=== PATIENT | male | born 1950 | race Caucasian/White ===

== ENCOUNTER 2017-12-09 12:38 | Outpatient (REF) | payer MEDICARE, MEDICAID, SELFPAY ==
[2017-12-09 13:22] LABS: HCT 33.5 % (40.0-50.0); HGB 10.2 g/dL (13.5-17.5); Mean Corp. HGB Concentration 30.4 g/dL (32.0-36.0); Mean Corpuscular Hemoglobin 25.7 pg (27.0-33.0); Mean Corpuscular Volume 84.4 fL (80-95); Mean Platelet Volume 9.7 fL (8.0-11.0); Platelet Count 245 x1000/uL (130-400); RBC 3.97 m/cumm (4.50-6.00); White Blood Cell Count 6.05 k/cumm (4.4-10.8)
[2017-12-09 13:27] LABS: ALT 105 U/L (12-78); AST 81 U/L (15-37); Albumin 3.5 g/dL (3.4-5.0); Alkaline Phosphatase 96 U/L (46-116); BUN 19 mg/dL (7-18); Bilirubin, Total 0.3 mg/dL (0.2-1.0); CREATININE 0.95 mg/dL (0.70-1.30); Calcium 8.5 mg/dL (8.5-10.1); Chloride 101 mmol/L (98-107); Glucose 95 mg/dL (70-100); Potassium 4.6 mmol/L (3.5-5.1); Sodium 137 mmol/L (136-145); Total Protein 7.1 g/dL (6.4-8.2)
[2017-12-12 10:04] LABS: PSA, Screening 1.4 ng/ml (0-4.5)
[2017-12-13 14:21] LABS: Testosterone, Free 5.25 ng/dL (3.47-13.0); Testosterone, Total 328 ng/dL (240-950)
== END 2017-12-09 12:58 ==
LOC: NCHCN 12:38
PROVIDERS: PCP Family Medicine; Visit Provider Family Medicine
DX: E29.1 Testicular hypofunction (principal); B18.2 Chronic viral hepatitis C; Z12.5 Encounter for screening for malignant neoplasm of prostate
CPT/HCPCS: 80053; 84153; 84402; 84403; 85027

== ENCOUNTER 2017-12-12 10:05 | Outpatient (REF) | payer MEDICARE, MEDICAID, SELFPAY ==
[2017-12-12 20:46] LABS: INR 1.1 (1.0-3.5); Iron 39 ug/dL (50-175); Prothrombin Time 10.4 sec (9.3-10.8); Total Iron Binding Capacity 471 ug/dL (250-450); Transferrin Sat 8 % (20-55)
[2017-12-14 12:31] LABS: HBs Antibody, Quant <3.1 mIU/mL; Hepatitis B Surface Ab Negative; Hepatitis B Surface Ag Negative (NEGAT)
[2017-12-14 12:48] LABS: HIV-1/2 Ag & Ab Screen Negative (NEGAT)
[2017-12-14 12:50] LABS: Hep A Total Ab w Rflx IgM Positive (NEGAT)
[2017-12-19 09:35] LABS: Hep A Antibody IgM Negative (NEGAT)
== END 2017-12-12 10:25 ==
LOC: NCHCN 10:05
PROVIDERS: PCP Family Medicine; Visit Provider Family Medicine
DX: D64.9 Anemia, unspecified (principal); B18.2 Chronic viral hepatitis C; Z11.4 Encounter for screening for human immunodeficiency virus [HIV]
CPT/HCPCS: 86706; 86709; 87340; 87389; 83540; 83550; 85610; 87522

== ENCOUNTER 2017-12-16 08:57 | Emergency (ER) | payer MEDICARE, MEDICAID, SELFPAY ==
[2017-12-16 09:03] VITALS: BP 120/74; PULSE 78; RESP 14; TEMP 36.5; O2SAT 96
[2017-12-16 09:16] VITALS: RESP 14
== END 2017-12-16 10:03 | disposition left before discharge ==
PROVIDERS: Emergency Provider Physician Assistant; PCP Family Medicine
DX: Z53.21 Procedure and treatment not carried out due to patient leaving prior to being seen by health care provider (principal)

== ENCOUNTER → 2018-01-10 08:13 | Outpatient (BNVA) | payer MEDICARE, MEDICAID, SELFPAY | PROVIDERS: PCP Family Medicine; Referring Provider Family Medicine; Visit Provider Surgery | DX: Z86.010 Personal history of colon polyps (principal); D64.9 Anemia, unspecified | CPT/HCPCS: 99213 ==

== ENCOUNTER 2018-06-12 08:26 | Outpatient (REF) | payer MEDICARE, MEDICAID, SELFPAY ==
[2018-06-12 12:25] LABS: Abs Immature Grans 0.01 k/cumm (0.0-0.09); Absolute Basophil Count 0.03 k/cumm (0.0-0.2); Absolute Eosinophil Count 0.43 k/cumm (0.0-0.7); Absolute Lymphocyte Count 1.23 k/cumm (1.2-3.4); Absolute Monocyte Count 0.86 k/cumm (0.11-0.7); Absolute Neutrophil Count 3.92 k/cumm (1.2-6.7); Basophils % 0.5; Eosinophils % 6.6; HCT 34.1 % (40.0-50.0); HGB 10.9 g/dL (13.5-17.5); Immature Grans % 0.2; Mean Corpuscular Hemoglobin 27.5 pg (27.0-33.0); Mean Corpuscular Volume 85.9 fL (80-95); Mean Platelet Volume 9.6 fL (8.0-11.0); Monocytes % 13.3; Neutrophils % 60.4; Platelet Count 264 x1000/uL (130-400); RBC 3.97 m/cumm (4.50-6.00); RBC Distribution Width 13.8 % (11.8-14.1); White Blood Cell Count 6.48 k/cumm (4.4-10.8)
[2018-06-12 13:24] LABS: ALT 34 U/L (12-78); AST 27 U/L (15-37); Albumin 3.6 g/dL (3.4-5.0); Alkaline Phosphatase 188 U/L (46-116); Anion Gap 9.7 mmol/L (3-11); BUN 18 mg/dL (7-18); Bilirubin, Total 0.6 mg/dL (0.2-1.0); CO2 29.3 mmol/L (21.0-32.0); CREATININE 0.79 mg/dL (0.70-1.30); Calcium 8.9 mg/dL (8.5-10.1); Chloride 98 mmol/L (98-107); Glucose 104 mg/dL (70-100); Potassium 4.2 mmol/L (3.5-5.1); Sodium 137 mmol/L (136-145); Total Protein 7.8 g/dL (6.4-8.2)
[2018-06-13 15:36] LABS: HCV RNA Detection Quantitative Undetected IU/mL (UNDECT)
== END 2018-06-12 08:46 ==
LOC: NCHCN 08:26
PROVIDERS: PCP Family Medicine; Visit Provider Family Medicine
DX: B18.2 Chronic viral hepatitis C (principal); Z11.59 Encounter for screening for other viral diseases
CPT/HCPCS: 80053; 86803; 85025; 87522

== ENCOUNTER 2018-10-18 09:41 | Outpatient (REF) | payer MEDICARE, SELFPAY ==
[2018-10-18 12:36] LABS: HCT 30.3 % (40.0-50.0); Mean Corp. HGB Concentration 29.7 g/dL (32.0-36.0); Mean Corpuscular Hemoglobin 23.3 pg (27.0-33.0); Mean Corpuscular Volume 78.5 fL (80-95); Mean Platelet Volume 9.5 fL (8.0-11.0); Platelet Count 252 x1000/uL (130-400); RBC 3.86 m/cumm (4.50-6.00); RBC Distribution Width 16.9 % (11.8-14.1)
[2018-10-18 13:31] LABS: ALT 28 U/L (12-78); AST 22 U/L (15-37); Albumin 3.4 g/dL (3.4-5.0); Alkaline Phosphatase 100 U/L (46-116); Anion Gap 5.9 mmol/L (3-11); BUN 31 mg/dL (7-18); Bilirubin, Total 0.2 mg/dL (0.2-1.0); CO2 29.1 mmol/L (21.0-32.0); CREATININE 0.92 mg/dL (0.70-1.30); Calcium 8.5 mg/dL (8.5-10.1); Chloride 101 mmol/L (98-107); Glucose 63 mg/dL (70-100); Potassium 4.4 mmol/L (3.5-5.1); Sodium 136 mmol/L (136-145); Total Protein 7.1 g/dL (6.4-8.2); Vitamin B12 625 pg/mL (193-986)
[2018-10-19 10:16] LABS: PSA, Screening 1.3 ng/ml (0-4.5)
[2018-10-19 15:43] LABS: HCV RNA Detection Quantitative Undetected IU/mL (UNDECT)
[2018-10-20 20:38] LABS: Testosterone, Total 264 ng/dL (240-950)
== END 2018-10-18 10:01 ==
LOC: LBN 09:41
PROVIDERS: PCP Family Medicine; Visit Provider Family Medicine
DX: D64.9 Anemia, unspecified (principal); E29.1 Testicular hypofunction; B18.2 Chronic viral hepatitis C; Z12.5 Encounter for screening for malignant neoplasm of prostate
CPT/HCPCS: 80053; 84153; 84403; 85027; 82607; 87522

== ENCOUNTER 2019-01-17 09:18 | Outpatient (REF) | payer MEDICARE, MEDICAID, SELFPAY ==
[2019-01-17 11:40] LABS: Mean Corpuscular Hemoglobin 24.1 pg (27.0-33.0); Mean Corpuscular Volume 80.4 fL (80-95); Mean Platelet Volume 8.9 fL (8.0-11.0); Platelet Count 312 x1000/uL (130-400); RBC 3.73 m/cumm (4.50-6.00); RBC Distribution Width 15.5 % (11.8-14.1); White Blood Cell Count 6.49 k/cumm (4.4-10.8)
[2019-01-17 11:52] LABS: Iron 22 ug/dL (50-175); Total Iron Binding Capacity 437 ug/dL (250-450); Transferrin Sat 5 % (20-55)
== END 2019-01-17 09:38 ==
LOC: NCHCN 09:18
PROVIDERS: PCP Family Medicine; Visit Provider Family Medicine
DX: D64.9 Anemia, unspecified (principal)
CPT/HCPCS: 85027; 83540; 83550

== ENCOUNTER 2019-04-23 08:45 | Outpatient (CLI) | payer MEDICARE, MEDICAID, SELFPAY ==
--- NOTE | 2019-04-23 09:06 | DI.RAD_ITS ---
EXAM: XR FOOT RT COMPLETE INDICATION: FOOT JOINT PAIN RT, M79.671. COMPARISON: No exams were available for comparison TECHNIQUE: 2D digital imaging was performed. FINDINGS: There is a question of deformity through the proximal metaphysis of the 2nd metatarsal. A nondisplac ed fracture cannot be excluded. Please correlate with the patient's site of pain. If further imagin g is warranted, a CT scan should be considered. There are mild degenerative changes seen of the foot particularly at the 1st metatarsophalangeal joint. The soft tissues are unremarkable.
== END 2019-04-23 09:05 ==
PROVIDERS: PCP Family Medicine; Visit Provider Nurse Practitioner Family
DX: M79.671 Pain in right foot (principal); M19.071 Primary osteoarthritis, right ankle and foot; M20.61 Acquired deformities of toe(s), unspecified, right foot
CPT/HCPCS: 73630

== ENCOUNTER 2019-05-07 06:50 | Outpatient (CLI) | payer MEDICARE, MEDICAID, SELFPAY ==
--- NOTE | 2019-05-07 08:15 | DI.CT_ITS ---
EXAM: CT LOWER EXTREMITY RT WO CLINICAL HISTORY: FOOT JOINT PAIN RT, M79.671, INJURY 2 WKS AGO, CONTINUED PAIN MID FOOT, ?FX TECHNIQUE: The exam was performed without contrast. COMPARISON: XR FOOT RT COMPLETE from 04/23/2019 FINDINGS: There are osseous fragments adjacent to the proximal cuboid. These may represent avulsed fracture fr agments. There is a nondisplaced comminuted fracture through the base of the 4th metatarsal. The fracture is intra-articular. There is a displaced comminuted intra-articular fracture through the base of the 3rd metatarsal. There is a comminuted intra-articular displaced fracture involving the base of the 2nd metatarsal. There is a tiny osseous fragment at the medial aspect of the base of the 1st metatarsal which may rep resent an acute fracture. There does appear to be some widening of the distance between the bases of the 1st and 2nd metatarsal s. IMPRESSION: 1. Fractures involving the bases of the 2nd, 3rd and 4th metatarsals. 2. Question of a fracture involving the medial aspect of the base of the 1st metatarsal. 3. Widening of the distance between the bases of the 1st and 2nd metatarsals consistent with a [place] deformity.
== END 2019-05-07 07:10 ==
PROVIDERS: PCP Family Medicine; Visit Provider Nurse Practitioner Family
DX: M79.671 Pain in right foot (principal); S92.344A Nondisplaced fracture of fourth metatarsal bone, right foot, initial encounter for closed fracture; S92.331A Displaced fracture of third metatarsal bone, right foot, initial encounter for closed fracture; S92.321A Displaced fracture of second metatarsal bone, right foot, initial encounter for closed fracture; S93.321A Subluxation of tarsometatarsal joint of right foot, initial encounter
CPT/HCPCS: 73700

== ENCOUNTER 2019-05-16 10:27 | Outpatient (CLI) | payer MEDICARE, MEDICAID, SELFPAY ==
--- NOTE | 2019-05-16 08:50 | DI.RAD_ITS ---
EXAM: XR FOOT RT COMPLETE INDICATION: F/U FRACTURES. COMPARISON: XR FOOT RT COMPLETE from 04/23/2019 CT LOWER EXTREMITY RT WO from 05/07/2019 TECHNIQUE: 2D digital imaging was performed. FINDINGS: There has been no change in the alignment of the fractures of the 2nd through 5th metatarsals. No d efinite 1st metatarsal fracture is seen. The 2nd metatarsal fracture appears mildly displaced, uncha nged. No new abnormalities are seen. IMPRESSION: Stable appearance of metatarsal fractures. DATA REPOSITORY: RADIATION DOSE DELIVERED:
== END 2019-05-16 10:47 ==
PROVIDERS: PCP Family Medicine; Referring Provider Family Medicine; Visit Provider Orthopaedic Surgery
DX: S92.321D Displaced fracture of second metatarsal bone, right foot, subsequent encounter for fracture with routine healing (principal); S92.331D Displaced fracture of third metatarsal bone, right foot, subsequent encounter for fracture with routine healing; S92.344D Nondisplaced fracture of fourth metatarsal bone, right foot, subsequent encounter for fracture with routine healing; S93.321D Subluxation of tarsometatarsal joint of right foot, subsequent encounter; X58.XXXD Exposure to other specified factors, subsequent encounter
CPT/HCPCS: 99201; 99213; 73630

== ENCOUNTER 2020-05-22 15:46 | Outpatient (REF) | payer MEDICARE, MEDICAID, SELFPAY ==
[2020-05-22 15:58] LABS: HCT 31.4 % (40.0-50.0); HGB 9.2 g/dL (13.5-17.5); MCHC 29.3 % (32.0-36.0); MCV 75.1 fL (80-95); MPV 9.3 fL (8.0-11.0); Platelet Count 368 10^3/uL (130-400); RBC 4.18 10^6/uL (4.36-5.78); RDW 17.4 % (11.8-14.1); WBC 6.73 10^3/uL (4.4-10.8)
[2020-05-22 16:05] LABS: Iron 31 ug/dL (65-175); Total Iron Binding Capacity 512 ug/dL (250-450); Transferrin Sat 6 % (20-55)
[2020-05-22 16:40] LABS: ALT 28 U/L (16-63); AST 24 U/L (15-37); Albumin 3.6 g/dL (3.4-5.0); Alkaline Phosphatase 121 U/L (46-116); Anion Gap 6.9 mmol/L (3-11); BUN 21 mg/dL (7-18); Bilirubin, Total 0.3 mg/dL (0.2-1.0); CO2 33.1 mmol/L (21.0-32.0); CREATININE 0.9 mg/dL (0.70-1.30); Calcium 9.4 mg/dL (8.5-10.1); Chloride 98 mmol/L (98-107); Glucose 80 mg/dL (74-106); Potassium 4.6 mmol/L (3.5-5.1); Sodium 138 mmol/L (136-145); Total Protein 8.1 g/dL (6.4-8.2); Vitamin B12 990 pg/mL (193-986)
[2020-05-22 22:22] LABS: PSA, Screening 0.7 ng/mL (0.0-4.5)
== END 2020-05-22 15:47 | disposition home or self-care (01) ==
LOC: NCHCN 15:46
PROVIDERS: PCP Family Medicine; Visit Provider Family Medicine
DX: D64.9 Anemia, unspecified (principal); E29.9 Testicular dysfunction, unspecified; Z12.5 Encounter for screening for malignant neoplasm of prostate
CPT/HCPCS: 80053; 84153; 85027; 82607; 83540; 83550

== ENCOUNTER 2020-08-06 07:47 | Inpatient (IN) | payer MEDICARE, MEDICAID, SELFPAY ==
[2020-08-06] VITALS (62 sets, daily range): BP systolic 98–162; BP diastolic 58–107; PULSE 67–98; RESP 12–27; TEMP 36–37.8; O2SAT 82–96
--- NOTE | 2020-08-06 08:00 | DI.CT_ITS ---
Exam(s) CT HEAD WO EXAM: CT HEAD WO CLINICAL HISTORY: altered, febrile. TECHNIQUE: Imaging Protocol: Axial computed tomography images with coronal and sagittal reformatted images were created and reviewed COMPARISON: No exams were available for comparison FINDINGS: There are no skull fractures nor fluid in the visualized paranasal sinuses. There is no evidence of intracranial hemorrhage, mass effect, or shift of midline structures. There are no extra-axial fluid collections. The ventricles are not enlarged or shifted and there is no blo od within the ventricular system nor within the basal cisterns. There is some vascular calcification noted in the left vertebral artery at the skull base. IMPRESSION: No acute intracranial findings on this noninfused CT scan of the brain. RADIATION DOSE DELIVERED: 1,590.58mGy.cm Total DLP DATA REPOSITORY: All CT scans at this facility are submitted to the National Radiology Data Registry (NRDR) Dose Index Registry (DIR) with the [employer] (ACR). RADIATION OPTIMIZATION: All CT scans at this facility use at least one of these dose optimization te chniques: automated exposure control; mA and/or kV adjustment per patient size (includes targeted exa ms where dose is matched to clinical indication); or iterative reconstruction.
--- NOTE | 2020-08-06 08:00 | DI.CT_ITS ---
Exam(s) CT CHEST/ABD/PEL WO EXAM: CT CHEST/ABD/PEL WO CLINICAL HISTORY: altered, febrile, cough, vomiting, ruq abd pain. TECHNIQUE: Imaging Protocol: Axial computed tomography images with coronal and sagittal reformatted images were created and reviewed CONTRAST MATERIAL: Intravenous: none Oral: None COMPARISON: No exams were available for comparison FINDINGS: CHEST: LUNGS: There are multiple areas of patchy infiltrate evident in both lung griffith, more so on the righ t side. No associated pleural effusions.. No significant focal findings in trachea and mainstem bro nchi. MEDIASTINUM: Minimally prominent hilar and mediastinal lymph nodes. Somewhat difficult to evaluate w ithout IV contrast. Visualized thyroid unremarkable.Large retrocardiac hiatal hernia. Most of the f undus of the stomach is in the chest behind the heart. CARDIAC: Heart size is normal. There is no pericardial effusion.Diameter of the ascending thoracic a javed is slightly prominent measuring 4 cm. Diameter of the aortic arch is 2.7 cm and diameter of the descending thoracic aorta is slightly prominent, measuring 3 cm. OSSEOUS: No significant osseous lesions.. ABDOMEN: Images are degraded by motion artifact There is no ascites. LIVER: There are no obvious focal hepatic lesions evident of this noninfused study. GALLBLADDER/BILIARY: No obvious gallbladder pathology. CBD is not dilated. PANCREAS: No evidence of obvious pancreatic mass nor dilatation of the pancreatic duct. SPLEEN: Spleen is not enlarged. No obvious intrasplenic lesions. ADRENALS: There are no significant adrenal masses. KIDNEYS: There is a solitary 4 millimeter calculus in the inferior pole calyx of the right kidney. N o other radiopaque calculi seen in the kidneys and no hydronephrosis. No ominous renal masses eviden t. No obvious cysts.. No cysts evident. ABDOMINAL AORTA: Abdominal aorta is not enlarged. LYMPH NODES: There is no retroperitoneal nor para-aortic adenopathy. ABDOMINAL WALL/GI: No evidence of signature anterior abdominal wall hernia. No bowel obstruction. PELVIS: LYMPH NODES: There is no intrapelvic nor inguinal adenopathy. GI: No evidence of appendicitis.There is sigmoid diverticuli. There is no obvious acute diverticulit is.Abundant fecal material noted in the rectum. No bowel obstruction. URINARY BLADDER: No calculi nor obvious masses evident REPRODUCTIVE: Prostate slightly prominent. OSSEOUS: Subtle sclerosis area in the left iliac bone. Slight height loss of the superior endplate of L1 vertebral body noted. Also deep Schmorl's node inv agination at the superior endplate of L1 noted no acute appearing compression fractures. Advanced di sc space narrowing L5-S1 level noted. No ominous osseous lesions evident in the vertebral bodies. IMPRESSION: 1. There is a solitary nonobstructive 4 millimeter calculus in the lower pole calyx of the right kidn ey. No hydronephrosis. No other focal renal findings evident on this noninfused CT scan. 2. Multiple foci of infiltrate in the lung griffith, not associated with pleural effusions. These are more prominent and numerous in the right lung. RADIATION DOSE DELIVERED: 941.38mGy.cm Total DLP DATA REPOSITORY: All CT scans at this facility are submitted to the National Radiology Data Registry (NRDR) Dose Index Registry (DIR) with the [employer] (ACR). RADIATION OPTIMIZATION: All CT scans at this facility use at least one of these dose optimization te chniques: automated exposure control; mA and/or kV adjustment per patient size (includes targeted exa ms where dose is matched to clinical indication); or iterative reconstruction.
--- NOTE | 2020-08-06 08:00 | RT.EKG_ITS ---
APPROVED REPORT Exam: Resting ECG Reason for Exam: altered Patient Location: E HR:85 bpm ECG Measurements Heart Rate 85 AXIS OK 164 P 44 QRSd 70 QRS 29 QT 342 T 57 QTc 408 Conclusion Sinus rhythm...normal P axis, V-rate 60- 99 Physician: EKG 8: 26 Rate 85, sinus rhythm, no significant ST elevations or depressions, no T wave inversions, no QRS prol ongation. No other significant abnormalities.
[2020-08-06 08:17] LABS: Abs Immature Grans 0.05 10^3/uL (0.0-0.06); Absolute Basophil Count 0.04 10^3/uL (0.0-0.2); Absolute Monocyte Count 0.84 10^3/uL (0.1-0.8); Basophils % 0.3; Eosinophils % 1.8; HCT 32.8 % (40.0-50.0); HGB 9.8 g/dL (13.5-17.5); Immature Grans % 0.4; Lymphocytes % 4.8; MCH 22.6 pg (27.0-33.0); MCHC 29.9 % (32.0-36.0); MCV 75.6 fL (80-95); MPV 8.8 fL (8.0-11.0); Neutrophils % 85.7; Nucleated RBC 0 %; Platelet Count 311 10^3/uL (130-400); RBC 4.34 10^6/uL (4.36-5.78); RDW 17.2 % (11.8-14.1); RDW-SD 46.5 fL; WBC 11.97 10^3/uL (4.4-10.8)
[2020-08-06 08:19] LABS: Absolute Eosinophil Count 0.22 10^3/uL (0.0-0.7); Absolute Lymphocyte Count 0.57 10^3/uL (1.2-3.4); Absolute Neutrophil Count 10.26 10^3/uL (1.2-6.7); BE (Venous) 7 mmol/L (-2-3); HCO3 (Venous) 32 mmol/L (23-28); O2 Sat (Venous) 87 %; TCO2 (Venous) 30 mmol/L (24-29); pCO2 (Venous) 56 mmHg (41-51); pH (Venous) 7.37 (7.31-7.41); pO2 (Venous) 54 mmHg
[2020-08-06 08:27] LABS: Lactate 1.3 mmol/L (0.6-1.4)
--- NOTE | 2020-08-06 08:39 | ED.GENADUL_ITS ---
Discharge Plan Disposition Condition: Improving Discharge Details Chief Complaint: Fever Clinical Impression: Pneumonia, Fever, Altered mental status Primary Care Provider: Tee Amato ED Provider: Jovan Shelley Home Meds and New Rx's Prescriptions: No Action ketoconazole 2 % shampoo 1 applic TP PRN PRNRF: 0 aspirin [Adult Low Dose Aspirin] 81 mg tablet,delayed release (DR/EC) 81 mg PO DAILY RF: 0 docusate sodium 100 mg capsule 50 mg PO DAILY RF: 0 sennosides [senna] 8.6 mg tablet 8.6 mg PO QHS RF: 0 ferrous gluconate 324 mg (38 mg iron) tablet 324 mg PO DAILY RF: 0 sucralfate 1 gram tablet 1 gm PO QID PRNRF: 0 ketoconazole 2 % cream 1 applic TP DAILY RF: 0 gabapentin 300 mg capsule 400 mg PO QHS RF: 0 venlafaxine 37.5 mg tablet 37.5 mg PO DAILY RF: 0 Flovent HFA 12 GM HFA aerosol inhaler 110 mcg Inhalation BID PRNRF: 0 gabapentin 300 MG capsule 0.5 tab PO PRN RF: 0 omeprazole 40 mg capsule,delayed release(DR/EC) 20 mg PO DAILY RF: 0 methadone 5 mg tablet 50 mg PO DAILY MDD 5 mg 28 Days Qty: 56 RF: 0 albuterol sulfate [Proventil HFA] 6.7 GM HFA aerosol inhaler 2 puff Inhalation Q4H PRN PRNRF: 0 diclofenac sodium [Voltaren] 100 GM gel 1 ea Topical QID RF: 0 venlafaxine [Effexor XR] 150 MG capsule,extended release 24hr 150 mg PO DAILY RF: 0 acetaminophen [Acetaminophen Extra Strength] 500 MG tablet 1,000 mg PO TID PRN PRNQty: 60 RF: 3 testosterone [AndroGel] 1 % (50 mg/5 gram) gel in packet 50 mg topical DAILY PRNRF: 0 Narcan 4 mg/actuation [place],Non-Aerosol See Rx Instructions .ROUTE .COMPLEX RF: 0 Medical Decision Making This is a 70-year-old male with a past medical history of chronic hepatitis C, anemia, depressive disorder, chronic pain syndrome, GERD, diastolic dysfunction, psoriasis, fibromyalgia, sleep apnea, asthma, methadone use, who presents today for evaluation of altered mental status. He was at the methadone clinic where the physician noted that he was altered, confused, stumbling, vital signs demonstrated fever. EMS was called and he was brought to the ER for further assessment. Patient is a notably poor historian currently, and cannot provide any additional information. He has no complaints time aside from mild abdominal pain during exam. No other modifying factors. Of note the patient did not get his methadone today. Physical exam demonstrates an altered male, who is febrile but hemodynamically stable. No meningeal signs, mild epigastric tenderness. To be as directed in his hands. He has a dilated and seemingly old injury of the left pupil, right pupil smaller and reactive. Differential is broad, no evidence of rash on exam, encephalitis seems less likely. With abdominal pain, history of hepatitis, I do worry about encephalopathy secondary to elevated ammonia. Clinically the patient does not demonstrate evidence of spontaneous bacterial peritonitis with no evidence of large peritoneal effusion. He was coughing, does have mild crackles in the bases, pneumonia certainly on the differential. We will evaluate for potential source, monitor closely, reassess. Of note the patient was 86% on room air initially and is now saturating well on 2 L. 9:42 AM Laboratory work-up is returned and is surprisingly relatively unremarkable. Minimal elevation in WBC count, hemoglobin slightly low at 9.8 but this is near his baseline. He does have a microcytic anemia. We will perform a stool Hemoccult. Mild left shift. No bandemia. Coagulation function is normal. VBG demonstrates minimal elevation in PCO2 but no acidosis. Lactate is only 1.3. Chemistries are normal, renal function good. Ammonia level only 25. Troponin n ormal, thyroid function good. Lipase normal. Urinalysis negative for any significant abnormality. CT scan of the head negative per Dr. Chan, CT scan of the chest abdomen pelvis demonstrates evidence of interstitial infiltrate concerning for pneumonia. Covid, and influenza test is negative. Patient saturating well on 2 L of supplemental oxygen. Repeat exam continues to show no meningeal signs, no meningeal mass, negative Kernig's and Brudzinski's. Symptoms inconsistent with meningitis. With evidence of pneumonia I see no indication for emergent spinal tap at this time as the symptoms appearing consistent with meningitis currently. We will treat with broad-spectrum antibiotics for his pneumonia with Zosyn, vancomycin and azithromycin. QRS and QTc are normal. Patient's temperature has improved here during his stay. We will gently rehydrate. I have contacted both the patient from the patient's contact list, both Kerline and Minerva, neither answered my call, I did leave a message. Currently there are no beds available at [facility], we will look for transfer elsewhere potentially. 12:53 PM Patient has remained stable here. It that has opened up at [facility]. Patient has received broad-spectrum antibiotics. We have gradually titrated the patient's oxygen down, he is now able to saturate at 93% on room air. Patient will be admitted. Discussed the case with , he agrees with the assessment and plan. I have extensively reviewed the treatment plan with the patient. I have addressed all patient concerns at this time. I have also discussed the plan with the admitting physician and they agree with the current assessment and plan and have agreed to assume responsibility for the patient. All parties demonstrate verbal understanding and agreement with our assessment and plan at this time. The documentation in this chart was dictated using [employer] dictation software. Please excuse any dictation errors. EKG 8: 26 Rate 85, sinus rhythm, no significant ST elevations or depressions, no T wave inversions, no QRS prolongation. QT is 408 no other significant abnormalities. HPI General Date/Time Provider Initiated Documentation: 08/06/20 08:00 . HPI Narrative: This is a 70-year-old male with a past medical history of chronic hepatitis C, anemia, depressive disorder, chronic pain syndrome, GERD, diastolic dysfunction, psoriasis, fibromyalgia, sleep apnea, asthma, methadone use, who presents today for evaluation of altered mental status. He was at the methadone clinic where the physician noted that he was altered, confused, stumbling, vital signs demonstrated fever. EMS was called and he was brought to the ER for further assessment. Patient is a notably poor historian currently, and cannot provide any additional information. He has no complaints time aside from mild abdominal pain during exam. No other modifying factors. Of note the patient did not get his methadone today. Related Data Home Medications Medication Instructions Recorded Confirmed Flovent HFA 110 mcg INHALATION BID PRN inhaler 03/02/14 08/06/20 albuterol sulfate [Proventil HFA] 2 puff INHALATION Q4H PRN PRN 07/28/15 08/06/20 diclofenac sodium [Voltaren] 1 ea TOPICAL QID 07/28/15 08/06/20 venlafaxine [Effexor XR] 150 mg PO DAILY 07/29/15 08/06/20 gabapentin 0.5 tab PO PRN tab-cap 09/01/16 01/12/18 acetaminophen [Acetaminophen Extra 1,000 mg PO TID PRN PRN #60 tab 04/12/17 01/12/18 Strength] aspirin 81 mg tablet,delayed 81 mg PO DAILY 12/19/17 01/12/18 release ketoconazole 2 % shampoo 1 applic TP PRN PRN 12/19/17 08/06/20 omeprazole 40 mg capsule,delayed 20 mg PO DAILY tab-cap 01/10/18 08/06/20 release docusate sodium 100 mg capsule 50 mg PO DAILY cap 05/16/19 05/16/19 ferrous gluconate 324 mg (38 mg 324 mg PO DAILY 05/16/19 08/06/20 iron) tablet gabapentin 300 mg capsule 400 mg PO QHS 05/16/19 08/06/20 ketoconazole 2 % topical cream 1 applic TP DAILY 05/16/19 08/06/20 methadone 5 mg tablet 50 mg PO DAILY 28 Days #56 tab MDD 05/16/19 08/06/20 5 mg sennosides 8.6 mg tablet 8.6 mg PO QHS 05/16/19 05/16/19 sucralfate 1 gram tablet 1 gm PO QID PRN tab 05/16/19 05/16/19 venlafaxine 37.5 mg tablet 37.5 mg PO DAILY 05/16/19 08/06/20 naloxone [Narcan] See Rx Instructions .ROUTE .COMPLEX 08/06/20 08/06/20 testosterone [AndroGel] 50 mg TOPICAL DAILY PRN 08/06/20 08/06/20 Previous Rx's Medication Instructions Recorded acetaminophen [Acetaminophen Extra 1,000 mg PO TID PRN PRN #60 tab 04/12/17 Strength] Allergies Allergy/AdvReac Type Severity Reaction Status Date / Time ibuprofen AdvReac Intermediate Nausea Unverified 08/06/20 08:43 General JEFRY: 3 Review of Systems All systems reviewed & are unremarkable except as noted in HPI and below PFSH Medical History Adenomatous colon polyp Anemia Asthma Bilateral hearing loss Chronic back pain Chronic hepatitis C Chronic uveitis Depression Diastolic dysfunction Dupuytren contracture Fibromyalgia GERD (gastroesophageal reflux disease) Opioid dependence Psoriasis Seborrheic dermatitis Sleep apnea Testosterone deficiency Surgical History S/P colonoscopy with polypectomy Family History Father Kidney failure Social History Smoking/Tobacco Use Status: Never Smoking risk assessment performed?: Yes Alcohol Intake: never Drug use: Current Sobriety Substance use type: does not use Current gender identity: male Do you feel safe in your relationship?: Yes Exam Narrative Exam Narrative: 1.Const: Well-nourished, Well-developed, appearing stated age 2.Eyes: Pupils demonstrate a dilated and seemingly old injury pattern for the left pupil, slightly constricted right pupil. Right pupil is reactive. Left pupil is not. Small cataract noted over the left pupil likely from old injury. 3.ENT: Atraumatic external nose and ears. Moist MM. Neck: Symmetric, trachea midline, No thyromegaly. Patient demonstrates good movement of cervical neck. There is no nuchal rigidity, no nuchal tenderness. Patient is able to flex the neck without any difficulty or significant pain. Negative Kernig's and Brudzinski sign. 4.CVS: +S1/S2, No murmurs or gallops. Peripheral pulses 2+ and equal in all extremities. Brisk capillary refill in all extremities. 5.RESP: Unlabored respiratory effort. Crackles in the bases, no wheezes or rhonchi. 6.GI: Soft, nondistended, mild epigastric tenderness. 7.MSK: Normocephalic/Atraumatic, Extremities w/o deformity or ttp No cyanosis or clubbing, Normal movement of all extremities, 1-2 beat asterixis in both hands. 8.Skin: Warm, Dry. No rashes or lesions. 9.Neuro: Patient moves all extremities, no facial droop, cranial nerves appear intact. Speech clear. 10.Psych: (AAO) x0. Pleasant, notably confused, appears somewhat altered. Course Lab/Test Results Lab/Test Results: 08/06/20 08:15 Blood Blood Culture - Pending 08/06/20 08:05 Blood Blood Culture - Pending Laboratory Tests Range/Units 08/06/20 08/06/20 08/06/20 08:05 08:05 08:05 WBC (4.4-10.8) 10^3/uL 11.97 H RBC (4.36-5.78) 10^6/uL 4.34 L Hgb (13.5-17.5) g/dL 9.8 L Hct (40.0-50.0) % 32.8 L MCV (80-95) fL 75.6 L MCH (27.0-33.0) pg 22.6 L MCHC (32.0-36.0) % 29.9 L RDW (11.8-14.1) % 17.2 H Plt Count (130-400) 10^3/uL 311 MPV (8.0-11.0) fL 8.8 Immature Gran % 0.4 Neutrophils % 85.7 Lymphocytes % 4.8 Monocytes % 7.0 Eosinophils % 1.8 Basophils % 0.3 Nucleated RBC % % 0 Absolute Neutrophils (1.2-6.7) 10^3/uL 10.26 H Absolute Lymphocytes (1.2-3.4) 10^3/uL 0.57 L Absolute Monocytes (0.1-0.8) 10^3/uL 0.84 H Absolute Eosinophils (0.0-0.7) 10^3/uL 0.22 Absolute Basophils (0.0-0.2) 10^3/uL 0.04 VBG pH (7.31-7.41) 7.37 VBG pCO2 (41-51) mmHg 56 H VBG pO2 mmHg 54 VBG HCO3 (23-28) mmol/L 32 H VBG Total CO2 (24-29) mmol/L 30 H VBG O2 Saturation % 87 VBG Base Excess (-2-3) mmol/L 7 H VBG Lactate (0.6-1.4) mmol/L 1.3 COVID-19 Source Range/Units 08/06/20 08:10 WBC (4.4-10.8) 10^3/uL RBC (4.36-5.78) 10^6/uL Hgb (13.5-17.5) g/dL Hct (40.0-50.0) % MCV (80-95) fL MCH (27.0-33.0) pg MCHC (32.0-36.0) % RDW (11.8-14.1) % Plt Count (130-400) 10^3/uL MPV (8.0-11.0) fL Immature Gran % Neutrophils % Lymphocytes % Monocytes % Eosinophils % Basophils % Nucleated RBC % % Absolute Neutrophils (1.2-6.7) 10^3/uL Absolute Lymphocytes (1.2-3.4) 10^3/uL Absolute Monocytes (0.1-0.8) 10^3/uL Absolute Eosinophils (0.0-0.7) 10^3/uL Absolute Basophils (0.0-0.2) 10^3/uL VBG pH (7.31-7.41) VBG pCO2 (41-51) mmHg VBG pO2 mmHg VBG HCO3 (23-28) mmol/L VBG Total CO2 (24-29) mmol/L VBG O2 Saturation % VBG Base Excess (-2-3) mmol/L VBG Lactate (0.6-1.4) mmol/L COVID-19 Source Nasopharyx
[2020-08-06 08:42] LABS: Ammonia 25 umol/L (11-32)
[2020-08-06 08:48] LABS: Salicylate < 2.8 mg/dL (<2.8)
[2020-08-06 08:48] LABS: Bilirubin Negative (Negative); Blood Trace-intact (Negative); Clarity Sl Cloudy (Clear); Glucose Negative (Negative); Ketones Negative (Negative); Leukocyte Esterase Negative (Negative); Nitrite Negative (Negative); Urobilinogen 0.2 EU/dL (Up TO 0.2); pH 8.5 (5-8)
[2020-08-06 08:54] LABS: Acetaminophen < 2 ug/mL (10-30)
[2020-08-06 08:56] LABS: Bacteria Negative HPF (Negative); C & S Indicated? No; Casts Negative LPF (Negative); Crystals Moderate Amorphous HPF (Negative); Epithelial Cells Rare HPF (Negative); Mucus Negative (Negative); WBC Negative HPF (0-5)
[2020-08-06 08:58] LABS: COVID-19 PCR Negative (Negative); Influenza A PCR Negative (Negative); Influenza B PCR Negative (Negative); RSV PCR Negative (Negative)
[2020-08-06 09:03] LABS: ALT 29 U/L (16-63); AST 22 U/L (15-37); Albumin 3.5 g/dL (3.4-5.0); Alkaline Phosphatase 104 U/L (46-116); Anion Gap 6.1 mmol/L (3-11); BUN 19 mg/dL (7-18); Bilirubin, Total 0.3 mg/dL (0.2-1.0); CO2 31.9 mmol/L (21.0-32.0); CREATININE 0.9 mg/dL (0.70-1.30); Chloride 100 mmol/L (98-107); Glucose 115 mg/dL (74-106); Lipase 75 U/L (73-393); Potassium 4.3 mmol/L (3.5-5.1); Sodium 138 mmol/L (136-145); TSH (W/Ref FT4) 0.82 uIU/mL (0.36-3.74); Total Protein 8.5 g/dL (6.4-8.2)
[2020-08-06 09:04] LABS: INR 1.1 (0.9-1.1); PTT Activated 24.5 sec (21.0-27.5); Prothrombin Time 10.8 sec (9.3-11.0)
[2020-08-06 09:07] LABS: ETHANOL BLOOD < 3.0 mg/dL (<3); Troponin I < 0.05 ng/mL (<0.06)
[2020-08-06 09:15] LABS: *AMPHETAMINES SCREEN URINE Negative (Negative); *BARBITURATES SCREEN URINE Negative (Negative); *BENZODIAZEPINES SCREEN URINE Negative (Negative); Cannabinoids THC Negative (Negative); Cocaine Screen,Urine Negative (Negative); METHADONE URINE SCREEN Negative (Negative); OPIATES URINE SCREEN Negative (Negative)
[2020-08-06 09:17] LABS: Tricyclic Antidepressants Negative (Negative)
[2020-08-06] MEDS: PIPERACILLIN/TAZO 3.375 GM in Normal Saline 50 ML IVPB (09:43)
[2020-08-06] MEDS: Normal Saline 1,000 ML 1000 ML IV (10:00)
[2020-08-06] MEDS: AZITHROMYCIN 500 MG in Normal Saline 250 ML 250 MG IVPB (10:19)
[2020-08-06] MEDS: VANCOMYCIN/WATER (PEG) 1.5 GM/300 ML BAG IVPB (11:43)
[2020-08-06 11:51] LABS: Troponin I < 0.05 ng/mL (<0.06)
[2020-08-06] MEDS: Enoxaparin 40 MG/0.4 ML SYR SC (13:42)
[2020-08-06] MEDS: Normal Saline Flush 10 ML SYR (13:43)
--- NOTE | 2020-08-06 13:49 | HPE_ITS ---
Date of service: 08/06/20 Time of Service: 13:49 Assessment and Plan Assessment and plan (1) Altered mental status: Status: Acute Assessment and plan: resolved on arrival to floor appears at baseline. will monitor closely (2) Chronic pain: Status: Acute Assessment and plan: will continue methadone. now fully awake, will give 60 mg today and resume home dose of 86 daily starting tomorrow. (3) Pneumonia: Status: Acute Assessment and plan: suspected on admission he is oxygenating well on room air, with no cough possibly aspirated, will give i/s no broad spectrum antibiotics indicated consider augmentin for a short course anticipate discharge tomorrow discussed with DR Arthur History of Present Illness History of Present Illness Chief Complaint: altered mental status Narrative: This is a 70-year-old male with a past medical history of chronic hepatitis C, anemia, depressive disorder, chronic pain syndrome, GERD, diastolic dysfunction, psoriasis, fibromyalgia, sleep apnea, asthma, methadone use, who presents today for evaluation of altered mental status.? He was at the methadone clinic where the physician noted that he was altered, confused, stumbling, vital signs demonstrated fever.? EMS was called and he was brought to the ER for further assessment.? Patient is a notably poor historian currently, and cannot provide any additional information.? He has no complaints time aside from mild abdominal pain during exam.? ? Of note the patient did not get his methadone today. extensive work up in ED with concern for pneumonia, he is given broad spectrum antibiotics and admission request to hospitalist services. at his baseline at admission, hemodynamically stable, requesting his methadone.? Review of Systems All systems reviewed & are unremarkable except as noted in HPI and below PFSH Medical History Adenomatous colon polyp Anemia Asthma Bilateral hearing loss Chronic back pain Chronic hepatitis C Chronic uveitis Depression Diastolic dysfunction Dupuytren contracture Fibromyalgia GERD (gastroesophageal reflux disease) Opioid dependence Psoriasis Seborrheic dermatitis Sleep apnea Testosterone deficiency Surgical History S/P colonoscopy with polypectomy Family History Father Kidney failure Social History Smoking/Tobacco Use Status: Never Smoking risk assessment performed?: Yes Alcohol Intake: never Drug use: Current Sobriety Substance use type: does not use Current gender identity: male Do you feel safe in your relationship?: Yes Meds Allergies and Home Medications Allergies Allergy/AdvReac Type Severity Reaction Status Date / Time ibuprofen AdvReac Intermediate Nausea Unverified 08/06/20 08:43 Home Medications Medication Instructions Recorded Confirmed Type Flovent HFA 110 mcg INHALATION BID PRN inhaler 03/02/14 08/06/20 History albuterol sulfate [Proventil HFA] 2 puff INHALATION Q4H PRN PRN 07/28/15 08/06/20 History diclofenac sodium [Voltaren] 1 ea TOPICAL QID 07/28/15 08/06/20 History venlafaxine [Effexor XR] 150 mg PO DAILY 07/29/15 08/06/20 History acetaminophen [Acetaminophen Extra 1,000 mg PO TID PRN PRN #60 tab 04/12/17 08/06/20 Rx Strength] aspirin 81 mg tablet,delayed 81 mg PO DAILY 12/19/17 08/06/20 History release ketoconazole 2 % shampoo 1 applic TP PRN PRN 12/19/17 08/06/20 History omeprazole 40 mg capsule,delayed 20 mg PO DAILY tab-cap 01/10/18 08/06/20 History release ferrous gluconate 324 mg (38 mg 324 mg PO DAILY 05/16/19 08/06/20 History iron) tablet gabapentin 300 mg capsule 400 mg PO QHS 05/16/19 08/06/20 History ketoconazole 2 % topical cream 1 applic TP DAILY 05/16/19 08/06/20 History sennosides 8.6 mg tablet 8.6 mg PO QHS 05/16/19 08/06/20 History venlafaxine 37.5 mg tablet 37.5 mg PO DAILY 05/16/19 08/06/20 History methadone [Methadone Intensol] 86 mg PO DAILY 08/06/20 08/06/20 History naloxone [Narcan] See Rx Instructions .ROUTE .COMPLEX 08/06/20 08/06/20 History testosterone [AndroGel] 50 mg TOPICAL DAILY PRN 08/06/20 08/06/20 History Exam Const General: cooperative, comfortable, no acute distress, disheveled and ill appearing chronically Nutritional Appearance: average body habitus Orientation: alert, awake and oriented x3 HENMT Head: normal to inspection, normocephalic and atraumatic Resp Effort & Inspection: normal respiratory effort and able to speak in complete sentences Auscultation: no rales, rhonchi (fine right base, ) and no wheezes Cardio Rate: regular rate Rhythm: regular rhythm GI Inspection: normal to inspection Skin General skin exam: no rashes or lesions noted Neuro General: patient alert, patient awake, patient oriented x3 and no focal motor deficits Extrem General: normal to inspection, full ROM and no pedal edema Results Labs Result diagrams: 08/06/20 08:05 08/06/20 08:05 Labs: Laboratory Results - last 24 hr 08/06/20 08/06/20 08/06/20 08:05 08:05 08:05 WBC RBC Hgb Hct MCV MCH MCHC RDW Plt Count MPV Immature Gran % Neutrophils % Lymphocytes % Monocytes % Eosinophils % Basophils % Nucleated RBC % Absolute Neutrophils Absolute Lymphocytes Absolute Monocytes Absolute Eosinophils Absolute Basophils PT INR APTT VBG pH VBG pCO2 VBG pO2 VBG HCO3 VBG Total CO2 VBG O2 Saturation VBG Base Excess VBG Lactate 1.3 Sodium 138 Potassium 4.3 Chloride 100 Carbon Dioxide 31.9 Anion Gap 6.1 BUN 19 H Creatinine 0.9 Estimated GFR/1.73 m2 >= 60.00 Glucose 115 H Calcium 9.0 Total Bilirubin 0.3 AST 22 ALT 29 Alkaline Phosphatase 104 Ammonia Troponin I < 0.05 Total Protein 8.5 H Albumin 3.5 Lipase 75 TSH 0.82 Urine Color Urine Clarity Urine pH Ur Specific [place] Urine Protein Urine Ketones Urine Blood Urine Nitrite Urine Bilirubin Urine Urobilinogen Ur Leukocyte Esterase Urine RBC Urine WBC Ur Epithelial Cells Urine Crystals Urine Bacteria Urine Casts Urine Mucus Ur Culture Indicated? Urine Glucose Salicylates < 2.8 Urine Opiates Screen Urine Methadone Screen Acetaminophen < 2 Ur Barbiturates Screen Ur Tricyclics Screen Ur Amphetamines Screen U Benzodiazepines Scrn Urine Cocaine Screen Ur THC Screen Ethyl Alcohol < 3.0 COVID-19 Source SARS-CoV-2 (PCR) Influenza Type A (PCR) Influenza Type B (PCR) RSV (PCR) 08/06/20 08/06/20 08/06/20 08:05 08:05 08:05 WBC 11.97 H RBC 4.34 L Hgb 9.8 L Hct 32.8 L MCV 75.6 L MCH 22.6 L MCHC 29.9 L RDW 17.2 H Plt Count 311 MPV 8.8 Immature Gran % 0.4 Neutrophils % 85.7 Lymphocytes % 4.8 Monocytes % 7.0 Eosinophils % 1.8 Basophils % 0.3 Nucleated RBC % 0 Absolute Neutrophils 10.26 H Absolute Lymphocytes 0.57 L Absolute Monocytes 0.84 H Absolute Eosinophils 0.22 Absolute Basophils 0.04 PT 10.8 INR 1.1 APTT 24.5 VBG pH 7.37 VBG pCO2 56 H VBG pO2 54 VBG HCO3 32 H VBG Total CO2 30 H VBG O2 Saturation 87 VBG Base Excess 7 H VBG Lactate Sodium Potassium Chloride Carbon Dioxide Anion Gap BUN Creatinine Estimated GFR/1.73 m2 Glucose Calcium Total Bilirubin AST ALT Alkaline Phosphatase Ammonia Troponin I Total Protein Albumin Lipase TSH Urine Color Urine Clarity Urine pH Ur Specific [place] Urine Protein Urine Ketones Urine Blood Urine Nitrite Urine Bilirubin Urine Urobilinogen Ur Leukocyte Esterase Urine RBC Urine WBC Ur Epithelial Cells Urine Crystals Urine Bacteria Urine Casts Urine Mucus Ur Culture Indicated? Urine Glucose Salicylates Urine Opiates Screen Urine Methadone Screen Acetaminophen Ur Barbiturates Screen Ur Tricyclics Screen Ur Amphetamines Screen U Benzodiazepines Scrn Urine Cocaine Screen Ur THC Screen Ethyl Alcohol COVID-19 Source SARS-CoV-2 (PCR) Influenza Type A (PCR) Influenza Type B (PCR) RSV (PCR) 08/06/20 08/06/20 08/06/20 08:10 08:15 08:30 WBC RBC Hgb Hct MCV MCH MCHC RDW Plt Count MPV Immature Gran % Neutrophils % Lymphocytes % Monocytes % Eosinophils % Basophils % Nucleated RBC % Absolute Neutrophils Absolute Lymphocytes Absolute Monocytes Absolute Eosinophils Absolute Basophils PT INR APTT VBG pH VBG pCO2 VBG pO2 VBG HCO3 VBG Total CO2 VBG O2 Saturation VBG Base Excess VBG Lactate Sodium Potassium Chloride Carbon Dioxide Anion Gap BUN Creatinine Estimated GFR/1.73 m2 Glucose Calcium Total Bilirubin AST ALT Alkaline Phosphatase Ammonia 25 Troponin I Total Protein Albumin Lipase TSH Urine Color Urine Clarity Urine pH Ur Specific [place] Urine Protein Urine Ketones Urine Blood Urine Nitrite Urine Bilirubin Urine Urobilinogen Ur Leukocyte Esterase Urine RBC Urine WBC Ur Epithelial Cells Urine Crystals Urine Bacteria Urine Casts Urine Mucus Ur Culture Indicated? Urine Glucose Salicylates Urine Opiates Screen Negative Urine Methadone Screen Negative Acetaminophen Ur Barbiturates Screen Negative Ur Tricyclics Screen Negative Ur Amphetamines Screen Negative U Benzodiazepines Scrn Negative Urine Cocaine Screen Negative Ur THC Screen Negative Ethyl Alcohol COVID-19 Source Nasopharyx SARS-CoV-2 (PCR) Negative Influenza Type A (PCR) Negative Influenza Type B (PCR) Negative RSV (PCR) Negative 08/06/20 08/06/20 08:30 11:05 WBC RBC Hgb Hct MCV MCH MCHC RDW Plt Count MPV Immature Gran % Neutrophils % Lymphocytes % Monocytes % Eosinophils % Basophils % Nucleated RBC % Absolute Neutrophils Absolute Lymphocytes Absolute Monocytes Absolute Eosinophils Absolute Basophils PT INR APTT VBG pH VBG pCO2 VBG pO2 VBG HCO3 VBG Total CO2 VBG O2 Saturation VBG Base Excess VBG Lactate Sodium Potassium Chloride Carbon Dioxide Anion Gap BUN Creatinine Estimated GFR/1.73 m2 Glucose Calcium Total Bilirubin AST ALT Alkaline Phosphatase Ammonia Troponin I < 0.05 Total Protein Albumin Lipase TSH Urine Color Yellow Urine Clarity Sl cloudy Urine pH 8.5 H Ur Specific [place] 1.020 Urine Protein Negative Urine Ketones Negative Urine Blood Trace-intact H Urine Nitrite Negative Urine Bilirubin Negative Urine Urobilinogen 0.2 Ur Leukocyte Esterase Negative Urine RBC 3-5 H Urine WBC Negative Ur Epithelial Cells Rare Urine Crystals Moderate amorphous Urine Bacteria Negative Urine Casts Negative Urine Mucus Negative Ur Culture Indicated? No Urine Glucose Negative Salicylates Urine Opiates Screen Urine Methadone Screen Acetaminophen Ur Barbiturates Screen Ur Tricyclics Screen Ur Amphetamines Screen U Benzodiazepines Scrn Urine Cocaine Screen Ur THC Screen Ethyl Alcohol COVID-19 Source SARS-CoV-2 (PCR) Influenza Type A (PCR) Influenza Type B (PCR) RSV (PCR) Last Vital Signs Temp 36.9 C 08/06/20 12:57 Pulse 71 08/06/20 12:30 Resp 21 08/06/20 12:40 BP 114/69 08/06/20 12:30 Pulse Ox 92 08/06/20 12:40 COVID-19 Screening Have you, or household traveled for leisure in last 14 days?: No Had IN PERSON contact w/suspected or confirmed C- person: No
[2020-08-06 14:15] LABS: Procalcitonin 0.1 ng/mL
[2020-08-06] MEDS: Methadone Liquid 10 MG/ML 60 MG PO (15:09)
[2020-08-06] MEDS: Diclofenac 1% Gel 100 GM TUBE TP ×2 (15:43→21:04)
--- NOTE | 2020-08-06 16:55 | NUR.NOTE ---
Patient arrived via wheelchair from ED @ 13:15. See Page 2 of admission assessment & VS.
[2020-08-06] MEDS: Amoxicillin 875/Clav. 125 TAB PO (21:04)
[2020-08-06] MEDS: Gabapentin 400 MG CAP PO (21:07)
[2020-08-06] MEDS: Senna TAB 1 TAB PO (21:07)
[2020-08-07 06:11] VITALS: BP 129/76; PULSE 72; RESP 19; TEMP 36; O2SAT 94
[2020-08-07 07:27] VITALS: BP 134/75; PULSE 66; RESP 17; TEMP 36.7; O2SAT 94
[2020-08-07] MEDS: Omeprazole 20 MG CAPCR 40 MG PO (07:44)
[2020-08-07 07:45] VITALS: O2SAT 95
[2020-08-07] MEDS: Diclofenac 1% Gel 100 GM TUBE TP ×2 (08:47→12:24)
[2020-08-07] MEDS: Methadone Liquid 10 MG/ML 86 MG PO (08:48)
[2020-08-07] MEDS: Venlafaxine 37.5 MG CAPCR PO (08:49)
[2020-08-07] MEDS: Amoxicillin 875/Clav. 125 TAB PO (08:49)
[2020-08-07] MEDS: Venlafaxine 150 MG CAPCR PO (08:49)
[2020-08-07] MEDS: Aspirin E.C. 81 MG TABEC PO (08:49)
[2020-08-07] MEDS: Ferrous Gluconate 324 MG TAB PO (08:49)
[2020-08-07] MEDS: Mometasone 220 MCG 14 DOSE INHALER 1 PUFF IH (09:16)
[2020-08-07 10:41] LABS: Abs Immature Grans 0.04 10^3/uL (0.0-0.06); Absolute Basophil Count 0.03 10^3/uL (0.0-0.2); Absolute Eosinophil Count 0.36 10^3/uL (0.0-0.7); Absolute Lymphocyte Count 1.04 10^3/uL (1.2-3.4); Absolute Monocyte Count 0.75 10^3/uL (0.1-0.8); Absolute Neutrophil Count 7.72 10^3/uL (1.2-6.7); Basophils % 0.3; Eosinophils % 3.6; HCT 33.7 % (40.0-50.0); Immature Grans % 0.4; Lymphocytes % 10.5; MCH 22.6 pg (27.0-33.0); MCHC 29.7 % (32.0-36.0); MCV 76.2 fL (80-95); MPV 8.9 fL (8.0-11.0); Monocytes % 7.5; Neutrophils % 77.7; Nucleated RBC 0 %; Platelet Count 341 10^3/uL (130-400); RBC 4.42 10^6/uL (4.36-5.78); RDW 17.4 % (11.8-14.1); RDW-SD 48.2 fL; WBC 9.94 10^3/uL (4.4-10.8)
[2020-08-07 10:51] LABS: BUN 15 mg/dL (7-18); CREATININE 0.8 mg/dL (0.70-1.30); Calcium 9.3 mg/dL (8.5-10.1); Chloride 100 mmol/L (98-107); Glucose 109 mg/dL (74-106); Potassium 3.8 mmol/L (3.5-5.1); Sodium 137 mmol/L (136-145)
--- NOTE | 2020-08-07 11:02 | CMPROGNOTE_ITS ---
Care Management Progress Note Jin was preparing for discharge when KEELY met with him. He requested support with coordinating transport through [facility] which KEELY provided. KEELY also provided last dose letter to Jin and faxed a copy to ROSI as well. Jin shared no concerns regarding his discharge and appeared to be in good spirits and shared his thanks for the support.
--- NOTE | 2020-08-07 11:21 | W.PM.DS.N ---
Date of service: 08/07/20 Time of Service: 11:21 DS: Diagnosis Discharge Diagnosis (1) Altered mental status: Status: Acute (2) Chronic pain: Status: Acute (3) Pneumonia: Status: Acute Discharge Plan Disposition Patient Disposition: HOME Condition: Improving Discharge Details Reason For Visit: Pnemonia, encephalopathy Admit Date/Time: 08/06/20 12:11 Admit Provider: Arnol Arthur Attending Provider: Arnol Arthur Primary Care Provider: Tee Amato [place] [facility] Course: This is a 70-year-old male with a past medical history of chronic hepatitis C, anemia, depressive disorder, chronic pain syndrome, GERD, diastolic dysfunction, psoriasis, fibromyalgia, sleep apnea, asthma, methadone use, who presented to the ED with altered mental status noted while he was at the methadone clinic to received his scheduled daily dose. Reports from provider that he was altered, confused, stumbling, vital signs stable but he reportedly had a fever.? EMS was called and he was brought to the ER for further assessment.? Patient was a notably poor historian not able to provide any additional information.?Of note the patient did not get his methadone. extensive work up in ED including head CT, labs including ammonia level, all unremarkable. there was concern for possible pneumonia and he was given broad spectrum antibiotics and admitted to hospitalist services. On arrival to the floor he was at his baseline, hemodynamically stable, requesting his methadone.? overnight he remained hemodynamically stable and at his baseline, he had no cough or respiratory symptoms. he is oxygenating well on room air. I do feel that he possibly had an aspiration event d/t oversedation of unclear etiology which is resolved. I will give him augmentin to complete a 3 day course. He was given his daily methadone dose of 86 mg prior to discharge today. He is also provide a last dose letter for documentation. he is being discharged with no new services. prescription called to [facility] at his request. discharge discussed with Dr Arthur. Home Meds and New Rx's Prescriptions: New amoxicillin-pot clavulanate 875-125 mg Tablet 1 tab PO BID Qty: 3 RF: 0 Continued ketoconazole 2 % shampoo 1 applic TP PRN PRNRF: 0 aspirin [Adult Low Dose Aspirin] 81 mg tablet,delayed release (DR/EC) 81 mg PO DAILY RF: 0 sennosides [senna] 8.6 mg tablet 8.6 mg PO QHS RF: 0 ferrous gluconate 324 mg (38 mg iron) tablet 324 mg PO DAILY RF: 0 ketoconazole 2 % cream 1 applic TP DAILY RF: 0 gabapentin 300 mg capsule 400 mg PO QHS RF: 0 venlafaxine 37.5 mg tablet 37.5 mg PO DAILY RF: 0 Flovent HFA 12 GM HFA aerosol inhaler 110 mcg Inhalation BID PRNRF: 0 omeprazole 40 mg capsule,delayed release(DR/EC) 20 mg PO DAILY RF: 0 albuterol sulfate [Proventil HFA] 6.7 GM HFA aerosol inhaler 2 puff Inhalation Q4H PRN PRNRF: 0 diclofenac sodium [Voltaren] 100 GM gel 1 ea Topical QID RF: 0 venlafaxine [Effexor XR] 150 MG capsule,extended release 24hr 150 mg PO DAILY RF: 0 acetaminophen [Acetaminophen Extra Strength] 500 MG tablet 1,000 mg PO TID PRN PRNQty: 60 RF: 3 testosterone [AndroGel] 1 % (50 mg/5 gram) gel in packet 50 mg topical DAILY PRNRF: 0 Narcan 4 mg/actuation [place],Non-Aerosol See Rx Instructions .ROUTE .COMPLEX RF: 0 methadone [Methadone Intensol] 10 mg/mL Concentrate 86 mg PO DAILY RF: 0 Discharge Instructions Instructions: Aspiration Pneumonia (DC), Altered Mental Status (ED) Additional Instructions: we think your cough was possibly d/t aspiration event. you are being treated with a short course of antibiotics, you need a dose tonight and 2 doses tomorrow to complete a 3 day course. resume your methadone as directed by outpatient team Stand Alone Forms: Nursing Discharge Form Referrals: Tee Amato [Primary Care Provider] - 08/20/20 4:20 pm Activity:: Activity as Tolerated Equipment/Supplies:: No Equipment Needed Diet:: As Tolerated Discharge Orders Discharge Orders: Discharge Order (Routine); Ordered 08/07/20 Ordered By: Patricia Walker Discharge Data Discharge Date/Time-TO BE ENTERED AT DEPARTURE: 08/07/20 11:28 DS: Summary Time Spent with Patient providing and/or coordinating discharge services: Less than 30 minutes Status at Discharge Functional status at discharge: independent ambulation Overall status at discharge: patient is back to baseline Mental Status: mental status grossly normal Speech and Movement: speech and movement normal Mood: congruent mood Affect: normal affect Exam Const General: cooperative, comfortable, no acute distress, disheveled and ill appearing chronically Nutritional Appearance: average body habitus Orientation: alert, awake and oriented x3 HENMT Head: normal to inspection, normocephalic and atraumatic Resp Effort & Inspection: normal respiratory effort and able to speak in complete sentences Auscultation: no rales and no wheezes Cardio Rate: regular rate Rhythm: regular rhythm GI Inspection: normal to inspection Skin General skin exam: no rashes or lesions noted Neuro General: patient alert, patient awake, patient oriented x3 and no focal motor deficits Extrem General: normal to inspection, full ROM and no pedal edema Psych Mental Status: mental status grossly normal Speech and Movement: speech and movement normal Mood: congruent mood Affect: normal affect DS: Data Vitals/I&O Vitals and I&O: Vital Signs Temperature 36.7 C 08/07/20 07:27 Temperature Source Temporal Artery Scan 08/07/20 07:27 Pulse 66 08/07/20 07:27 Pulse Rhythm Regular 08/07/20 07:45 Pulse 77 08/06/20 13:33 Respiratory Rate 17 08/07/20 07:27 Respiratory Effort 08/07/20 07:45 Respiratory Depth Shallow 08/07/20 07:45 Respiratory Pattern Normal 08/07/20 07:45 Blood Pressure 134/75 08/07/20 07:27 Blood Pressure Mean 80 08/06/20 12:30 Blood Pressure Position Supine 08/06/20 08:36 Pulse Oximetry 95 08/07/20 07:45 Oxygen Delivery Method Room Air 08/07/20 07:45 Oxygen Flow Rate 0 08/07/20 07:45 Pain Level 7 08/07/20 08:48 Intake & Output 08/06/20 08/06/20 08/07/20 11:59 23:59 11:59 Intake Total 1300 / 1563 263 / 1563 480 / 480 Output Total 800 / 800 1400 / 1400 Balance 1300 / 763 -537 / 763 -920 / -920 Weight 73 kg Intake: IV 1300 / 1300 Oral 263 / 263 480 / 480 Output: Urine 800 / 800 1400 / 1400 Other: Urine Color Yellow Yellow Urine Appearance Clear Clear Urine Odor None Normal Stool Size Moderate Stool Characteristics Formed Voiding Methods Toilet Toilet Data Completed and Pending Labs on day of discharge: Labs from last 24 hours 08/07/20 08/07/20 08/06/20 10:30 10:30 11:05 WBC 9.94 RBC 4.42 Hgb 10.0 L Hct 33.7 L MCV 76.2 L MCH 22.6 L MCHC 29.7 L RDW 17.4 H Plt Count 341 MPV 8.9 Immature Gran % 0.4 Neutrophils % 77.7 Lymphocytes % 10.5 Monocytes % 7.5 Eosinophils % 3.6 Basophils % 0.3 Nucleated RBC % 0 Absolute Neutrophils 7.72 H Absolute Lymphocytes 1.04 L Absolute Monocytes 0.75 Absolute Eosinophils 0.36 Absolute Basophils 0.03 Sodium 137 Potassium 3.8 Chloride 100 Carbon Dioxide 31.0 Anion Gap 6.0 BUN 15 Creatinine 0.8 Estimated GFR/1.73 m2 >= 60.00 Glucose 109 H Calcium 9.3 Troponin I Procalcitonin 0.1 08/06/20 11:05 WBC RBC Hgb Hct MCV MCH MCHC RDW Plt Count MPV Immature Gran % Neutrophils % Lymphocytes % Monocytes % Eosinophils % Basophils % Nucleated RBC % Absolute Neutrophils Absolute Lymphocytes Absolute Monocytes Absolute Eosinophils Absolute Basophils Sodium Potassium Chloride Carbon Dioxide Anion Gap BUN Creatinine Estimated GFR/1.73 m2 Glucose Calcium Troponin I < 0.05 Procalcitonin Preliminary micro results at discharge 08/06/20 08:15 Blood Culture - Preliminary Blood NO GROWTH 24 HOURS 08/06/20 08:05 Blood Culture - Preliminary Blood NO GROWTH 24 HOURS PFSH Medical History Adenomatous colon polyp Anemia Asthma Bilateral hearing loss Chronic back pain Chronic hepatitis C Chronic uveitis Depression Diastolic dysfunction Dupuytren contracture Fibromyalgia GERD (gastroesophageal reflux disease) Opioid dependence Psoriasis Seborrheic dermatitis Sleep apnea Testosterone deficiency Surgical History S/P colonoscopy with polypectomy Family History Father Kidney failure Social History Smoking/Tobacco Use Status: Never Smoking risk assessment performed?: Yes Alcohol Intake: never Drug use: Current Sobriety Substance use type: does not use Current gender identity: male Do you feel safe in your relationship?: Yes
== END 2020-08-07 11:28 | disposition home or self-care (01) | DRG 178 ==
LOC: ER 12:45 → MS 13:19
PROVIDERS: Nurse Practitioner Acute Care; Admitting Provider Internal Medicine; Emergency Provider Student in an Organized Health Care Education/Training Program; PCP Family Medicine; Visit Provider Internal Medicine
DX: J69.0 Pneumonitis due to inhalation of food and vomit (principal); F11.20 Opioid dependence, uncomplicated; G93.40 Encephalopathy, unspecified; I50.30 Unspecified diastolic (congestive) heart failure; D64.9 Anemia, unspecified; G89.4 Chronic pain syndrome; B18.2 Chronic viral hepatitis C; F32.9 Major depressive disorder, single episode, unspecified; K21.9 Gastro-esophageal reflux disease without esophagitis; L40.9 Psoriasis, unspecified; G47.30 Sleep apnea, unspecified; J45.909 Unspecified asthma, uncomplicated; H91.8X3 Other specified hearing loss, bilateral; M54.9 Dorsalgia, unspecified; H20.10 Chronic iridocyclitis, unspecified eye; Z20.822 Contact with and (suspected) exposure to COVID-19
CPT/HCPCS: 36415; 71250; 80048; 80053; 80307; 82805; 83690; 84145; 87040; 87637; 93005; 96361; 96365; 96366; 96367; 99285; J1650; 70450; 74176; 80320; 80329; 81003; 81015; 82140; 83605; 84443; 84484; 85025; 85610; 85730; 93010; 99223; 99238; J0456; J2543

== ENCOUNTER 2021-04-08 19:04 | Outpatient (REF) | payer MEDICARE, MEDICAID, SELFPAY ==
[2021-04-08 20:36] LABS: ALT 23 U/L (16-63); AST 22 U/L (15-37); Albumin 3.7 g/dL (3.4-5.0); Alkaline Phosphatase 106 U/L (46-116); Anion Gap 5.6 mmol/L (3-11); BUN 25 mg/dL (7-18); Bilirubin, Total 0.3 mg/dL (0.2-1.0); CO2 31.4 mmol/L (21.0-32.0); CREATININE 0.9 mg/dL (0.70-1.30); Calcium 8.9 mg/dL (8.5-10.1); Chloride 100 mmol/L (98-107); Glucose 83 mg/dL (74-106); Potassium 4.2 mmol/L (3.5-5.1); Sodium 137 mmol/L (136-145); Total Protein 7.5 g/dL (6.4-8.2)
[2021-04-13 12:21] LABS: Syphilis Serology (RPR) Negative (Negative)
== END 2021-04-08 19:05 | disposition home or self-care (01) ==
LOC: NCHCN 19:04
PROVIDERS: PCP Family Medicine; Visit Provider Family Medicine
DX: R74.8 Abnormal levels of other serum enzymes (principal); R40.4 Transient alteration of awareness
CPT/HCPCS: 80053; 86592

== ENCOUNTER 2021-06-19 13:34 | Outpatient (REF) | payer MEDICARE, MEDICAID, SELFPAY ==
[2021-06-19 15:50] LABS: HCT 36.8 % (40.0-50.0); HGB 10.8 g/dL (13.5-17.5); MCH 23.7 pg (27.0-33.0); MCHC 29.3 % (32.0-36.0); MCV 80.9 fL (80-95); MPV 9.4 fL (8.0-11.0); Platelet Count 362 10^3/uL (130-400); RBC 4.55 10^6/uL (4.36-5.78); RDW 16.2 % (11.8-14.1); RDW-SD 47.6 fL; WBC 6.64 10^3/uL (4.4-10.8)
[2021-06-19 16:05] LABS: Iron 89 ug/dL (65-175); Total Iron Binding Capacity 451 ug/dL (250-450); Transferrin Sat 20 % (20-55)
[2021-06-19 16:12] LABS: ALT 36 U/L (16-63); AST 32 U/L (15-37); Albumin 3.7 g/dL (3.4-5.0); Alkaline Phosphatase 133 U/L (46-116); Anion Gap 7.9 mmol/L (3-11); BUN 29 mg/dL (7-18); Bilirubin, Total 0.4 mg/dL (0.2-1.0); CO2 31.1 mmol/L (21.0-32.0); CREATININE 0.8 mg/dL (0.70-1.30); Calcium 8.9 mg/dL (8.5-10.1); Chloride 97 mmol/L (98-107); Glucose 87 mg/dL (74-106); Potassium 4.1 mmol/L (3.5-5.1); Sodium 136 mmol/L (136-145); Total Protein 8.3 g/dL (6.4-8.2)
[2021-06-19 22:27] LABS: PSA, Diagnostic 1.6 ng/mL (0.0-6.5)
== END 2021-06-19 13:35 | disposition home or self-care (01) ==
LOC: NCHCN 13:34
PROVIDERS: PCP Family Medicine; Visit Provider Family Medicine
DX: D64.9 Anemia, unspecified (principal); R10.2 Pelvic and perineal pain; R74.8 Abnormal levels of other serum enzymes
CPT/HCPCS: 80053; 85027; 83540; 83550; 84153

== ENCOUNTER 2021-07-16 01:50 | Outpatient (CLI) | payer MEDICARE, MEDICAID, SELFPAY ==
--- NOTE | 2021-07-16 | DI.MRI_ITS ---
Exam(s) MR PELVIS WO EXAM: MR PELVIS WO/W CLINICAL HISTORY: LT PELVIC PAIN, R10.2,WT LOSS,NEW CALCIUM DEPOSITION. TECHNIQUE: Multiplanar multisequence MRI was performed. COMPARISON: No exams were available for comparison FINDINGS: MR examination of the pelvis was performed. Non contrast examination only was obtained, as the patie nt had trouble tolerating the procedure and was unable to tolerate the length of the procedure requir ed for contrast enhanced examination. There is moderate motion artifact on multiple pulse sequences. No soft tissue mass or adenopathy of the pelvis identified. Prostate appears enlarged. Bony signal in the pelvis is somewhat heterogeneous. No gross mass lesion identified. The femoral h javier appear well maintained. No significant muscular low tendinous or ligamentous abnormality identi fied. IMPRESSION: Grossly unremarkable noncontrast pelvic CT. If there is a high clinical suspicion of bony disease, additional evaluation with contrast enhanced examination is recommended. Contrast examination was planned for today's examination, but was not performed due to patient discom fort. DATA REPOSITORY:
--- NOTE | 2021-07-16 | DI.RAD_ITS ---
Exam(s) XR EYE FOREIGN BODY EXAM: XR EYE FOREIGN BODY CLINICAL HISTORY: PRE MRI CLEARANCE,SCREENING FOR METAL,Z13.4,H/O METAL TO EYE TECHNIQUE: COMPARISON: No exams were available for comparison FINDINGS: Two views were obtained and show no evidence of intra orbital metallic foreign body. Paranasal sinus es appear grossly well aerated as visualized. IMPRESSION: RADIATION DOSE DELIVERED: Total DLP
[2021-07-16] MEDS: Gadoterate meglumine 20 ML VIAL IVP (13:43)
[2021-07-16] MEDS: Normal Saline Flush 10 ML SYR IVP (13:43)
== END 2021-07-16 02:10 ==
PROVIDERS: PCP Family Medicine; Visit Provider Family Medicine
DX: R10.2 Pelvic and perineal pain (principal); R63.4 Abnormal weight loss; N40.0 Benign prostatic hyperplasia without lower urinary tract symptoms; Z01.818 Encounter for other preprocedural examination
CPT/HCPCS: 70030; 72195

== ENCOUNTER 2021-10-19 11:44 | Outpatient (REF) | payer MEDICARE, MEDICAID, SELFPAY ==
[2021-10-19 14:55] LABS: HCT 35.4 % (40.0-50.0); HGB 10.6 g/dL (13.5-17.5); MCH 23.9 pg (27.0-33.0); MCHC 29.9 % (32.0-36.0); MCV 80 fL (80-95); MPV 8.9 fL (8.0-11.0); Platelet Count 383 10^3/uL (130-400); RBC 4.44 10^6/uL (4.36-5.78); RDW 15.9 % (11.8-14.1); RDW-SD 45.5 fL; WBC 6.89 10^3/uL (4.4-10.8)
[2021-10-19 15:15] LABS: Total Iron Binding Capacity 472 ug/dL (250-450)
== END 2021-10-19 11:45 | disposition home or self-care (01) ==
LOC: NCHCN 11:44
PROVIDERS: PCP Family Medicine; Visit Provider Family Medicine
DX: D64.9 Anemia, unspecified (principal)
CPT/HCPCS: 85027; 83550

== ENCOUNTER → 2021-10-23 00:45 | Outpatient (CLI) | payer MEDICARE, MEDICAID, SELFPAY ==
--- NOTE | 2021-10-23 12:53 | DI.RAD_ITS ---
Exam(s) XR RIBS LT W PA LAT CHEST EXAM: XR RIBS LT W PA LAT CHEST CLINICAL HISTORY: LT SIDED RIB PAIN R07.81 FALL 2-3 MONTHS AGO TECHNIQUE: 2D digital imaging was performed. COMPARISON: CR CHEST 2 VIEWS PA,LAT from 09/30/2015 FINDINGS: MEDIASTINUM: There is a small hiatal hernia. HEART: Normal. PULMONARY VASCULATURE: Normal. LUNGS: There is scarring in the right lung. No focal consolidating infiltrates are present. PLEURAL SPACE: No pleural effusion or pneumothorax. BONE:Within normal limits for the patient's age. LEFT RIBS: Normal. No acute or healing fractures are identified. OTHER FINDINGS:There is elevation of the right hemidiaphragm. IMPRESSION: 1. No acute pulmonary findings. 2. Unremarkable left ribs. DATA REPOSITORY: RADIATION DOSE DELIVERED:
== END ==
PROVIDERS: PCP Family Medicine; Visit Provider Family Medicine
DX: R07.81 Pleurodynia (principal)
CPT/HCPCS: 71046; 71100

== ENCOUNTER 2021-11-02 18:34 | Outpatient (REF) | payer MEDICARE, MEDICAID, SELFPAY ==
[2021-11-06 09:55] LABS: HSV 1 PCR Positive (Negative); HSV 2 PCR Negative (Negative)
== END 2021-11-02 18:35 | disposition home or self-care (01) ==
LOC: NCHCN 18:34
PROVIDERS: PCP Family Medicine; Visit Provider Nurse Practitioner Family
DX: B02.9 Zoster without complications (principal)
CPT/HCPCS: 87529

== ENCOUNTER 2022-05-07 11:21 | Outpatient (REF) | payer MEDICARE, MEDICAID, SELFPAY ==
[2022-05-07 14:49] LABS: HGB 10.1 g/dL (13.5-17.5); MCH 25.1 pg (27.0-33.0); MCHC 30.6 % (32.0-36.0); MCV 82 fL (80-95); MPV 9.1 fL (8.0-11.0); Platelet Count 352 10^3/uL (130-400); RBC 4.03 10^6/uL (4.36-5.78); RDW 15.6 % (11.8-14.1); RDW-SD 46.8 fL; WBC 6.33 10^3/uL (4.4-10.8)
[2022-05-07 15:01] LABS: ALT 44 U/L (16-63); AST 59 U/L (15-37); Albumin 3.6 g/dL (3.4-5.0); Alkaline Phosphatase 116 U/L (46-116); Anion Gap 4.9 mmol/L (3-11); BUN 16 mg/dL (7-18); Bilirubin, Total 0.5 mg/dL (0.2-1.0); CO2 31.1 mmol/L (21.0-32.0); CREATININE 0.7 mg/dL (0.70-1.30); Calcium 9.6 mg/dL (8.5-10.1); Chloride 100 mmol/L (98-107); Estimated GFR 98.51 (mL/min/1.73m2); Glucose 94 mg/dL (74-106); Potassium 4.4 mmol/L (3.5-5.1); Sodium 136 mmol/L (136-145); Total Protein 8.2 g/dL (6.4-8.2)
[2022-05-07 22:42] LABS: PSA, Diagnostic 1.2 ng/mL (<=6.5)
== END 2022-05-07 11:22 | disposition home or self-care (01) ==
LOC: NCHCN 11:21
PROVIDERS: PCP Family Medicine; Visit Provider Family Medicine
DX: E29.1 Testicular hypofunction (principal); D50.9 Iron deficiency anemia, unspecified
CPT/HCPCS: 80053; 85027; 84153

== ENCOUNTER 2022-08-11 15:22 | Outpatient (REF) | payer MEDICARE, MEDICAID, SELFPAY ==
[2022-08-11 20:03] LABS: ALT 42 U/L (16-63); AST 53 U/L (15-37); Albumin 3.7 g/dL (3.4-5.0); Alkaline Phosphatase 126 U/L (46-116); Bilirubin, Direct 0.1 mg/dL (0.0-0.2); Bilirubin, Total 0.4 mg/dL (0.2-1.0); Total Protein 7.8 g/dL (6.4-8.2)
[2022-08-13 08:30] LABS: Hepatitis B Surface Ag Negative (Negative)
[2022-08-16 12:41] LABS: HCV RNA Qualitative Undetected (Undetected)
== END 2022-08-11 15:23 | disposition home or self-care (01) ==
LOC: NCHCN 15:22
PROVIDERS: PCP Family Medicine; Visit Provider Family Medicine
DX: R74.8 Abnormal levels of other serum enzymes (principal); Z87.19 Personal history of other diseases of the digestive system
CPT/HCPCS: 80076; 87340; 87522

== ENCOUNTER 2023-01-13 12:38 | Outpatient (REF) | payer MEDICARE, MEDICAID, SELFPAY ==
[2023-01-13 15:56] LABS: Iron 20 ug/dL (65-175); Total Iron Binding Capacity 374 ug/dL (250-450); Transferrin Sat 5 % (20-55)
[2023-01-13 16:42] LABS: ALT 30 U/L (16-63); AST 23 U/L (15-37); Albumin 3.4 g/dL (3.4-5.0); Alkaline Phosphatase 105 U/L (46-116); Bilirubin, Total 0.2 mg/dL (0.2-1.0); Calculated LDL 105 mg/dL (<100); Cholesterol 181 mg/dL (<200); Ferritin 12 ng/mL (26-388); HDL Cholesterol 63 mg/dL (40-60); Total Protein 6.9 g/dL (6.4-8.2); Triglyceride 69 mg/dL (<150)
[2023-01-13 17:02] LABS: Bilirubin, Direct 0.1 mg/dL (0.0-0.2); Creatine Kinase 240 U/L (39-308)
== END 2023-01-13 12:39 | disposition home or self-care (01) ==
LOC: NCHCN 12:38
PROVIDERS: PCP Family Medicine; Visit Provider Family Medicine
DX: R79.89 Other specified abnormal findings of blood chemistry (principal); D50.9 Iron deficiency anemia, unspecified; M62.82 Rhabdomyolysis; Z00.00 Encounter for general adult medical examination without abnormal findings
CPT/HCPCS: 80061; 80076; 82550; 82728; 83540; 83550

== ENCOUNTER 2023-02-14 08:17 | Outpatient (CLI) | payer MEDICARE, MEDICAID, SELFPAY | END 2023-02-14 08:18 | disposition home or self-care (01) | LOC: DI.CARD 08:18 | PROVIDERS: PCP Family Medicine; Visit Provider Internal Medicine Cardiovascular Disease | DX: I47.10 Supraventricular tachycardia, unspecified (principal) | CPT/HCPCS: 93010 ==

== ENCOUNTER 2023-06-16 17:51 | Outpatient (REF) | payer MEDICARE, MEDICAID, SELFPAY ==
[2023-06-16 19:06] LABS: MCH 23.8 pg (27.0-33.0); MCHC 29.4 % (32.0-36.0); MCV 81 fL (80-95); MPV 8.8 fL (8.0-11.0); Platelet Count 395 10^3/uL (130-400); RBC 4.21 10^6/uL (4.36-5.78); RDW 15.9 % (11.8-14.1); RDW-SD 46.6 fL
[2023-06-16 19:08] LABS: Bilirubin Negative (Negative); Blood Trace-intact (Negative); Clarity Clear (Clear); Glucose Negative (Negative); Ketones Negative (Negative); Leukocyte Esterase Negative (Negative); Nitrite Negative (Negative); Specific Gravity >= 1.030 (1.005-1.025); Urobilinogen 0.2 mg/dL (Up to 0.2)
[2023-06-16 19:18] LABS: WBC 0-2 HPF (0-5)
[2023-06-16 19:19] LABS: Bacteria Negative HPF (Negative); C & S Indicated? No; Crystals Negative HPF (Negative); Epithelial Cells Negative HPF (Negative); Mucus Trace (Negative)
[2023-06-16 19:30] LABS: Iron 22 ug/dL (65-175); Total Iron Binding Capacity 449 ug/dL (250-450); Transferrin Sat 5 % (20-55)
[2023-06-16 19:46] LABS: ALT 36 U/L (16-63); AST 25 U/L (15-37); Albumin 3.5 g/dL (3.4-5.0); Alkaline Phosphatase 118 U/L (46-116); Anion Gap 5.3 mmol/L (3-11); BUN 15 mg/dL (7-18); Bilirubin, Total 0.2 mg/dL (0.2-1.0); CO2 30.7 mmol/L (21.0-32.0); CREATININE 0.8 mg/dL (0.70-1.30); Calcium 8.8 mg/dL (8.5-10.1); Calculated LDL 71 mg/dL (<100); Chloride 100 mmol/L (98-107); Cholesterol 170 mg/dL (<200); Estimated GFR 94.03 (mL/min/1.73m2); Ferritin 6 ng/mL (26-388); Glucose 113 mg/dL (74-106); HDL Cholesterol 79 mg/dL (40-60); Potassium 4.3 mmol/L (3.5-5.1); Sodium 136 mmol/L (136-145); Total Protein 7.4 g/dL (6.4-8.2); Triglyceride 100 mg/dL (<150)
== END 2023-06-16 17:52 | disposition home or self-care (01) ==
LOC: NCHCN 17:51
PROVIDERS: PCP Family Medicine; Visit Provider Family Medicine
DX: I51.9 Heart disease, unspecified (principal); D50.9 Iron deficiency anemia, unspecified
CPT/HCPCS: 80053; 80061; 85027; 81003; 81015; 82728; 83540; 83550

== ENCOUNTER 2023-08-30 20:09 | Emergency (ER) | payer MEDICARE, MEDICAID, SELFPAY ==
[2023-08-30] VITALS (31 sets, daily range): BP systolic 130–162; BP diastolic 74–87; PULSE 67–79; RESP 14–24; O2SAT 92–94
--- NOTE | 2023-08-30 20:00 | RT.EKG_ITS ---
APPROVED REPORT Exam: Resting ECG Reason for Exam: ams Patient Location: E HR:77 bpm ECG Measurements Heart Rate 77 AXIS DE 171 P 18 QRSd 88 QRS 22 QT 411 T 49 QTc 465 Conclusion Sinus rhythm 77 normal axis no stemi
--- NOTE | 2023-08-30 20:15 | DI.CT_ITS ---
Exam(s) CT BRAIN NECK CTA EXAM: CT BRAIN NECK CTA CLINICAL HISTORY: confusion, enceph vs CVA, gait abnormal. TECHNIQUE: Imaging Protocol: Axial CT angiography was performed with multi-slice acquisition and mu lti-planar and/or 3D reconstructions. CONTRAST MATERIAL: Intravenous: Omnipaque 350 Contrast volume:structured data in ml COMPARISON: CT CT CHEST/ABD/PEL WO from 08/06/2020 FINDINGS: CTA Neck W: Visualized lung apices: There is ground-glass infiltrate in the partially visualized left upper lobe. Aortic arch anatomy: The aortic arch anatomy is conventional and there is no significant stenosis at the origin of the great vessels off of the aortic arch. No intimal flap evident. Anterior circulation: Both common carotid arteries ascend with normal luminal diameters. At the level the carotid bulbs and proximal internal carotid arteries there is minimal plaque without hemodynamically significant stenosis evident. Both internal carotid arteries are patent in the upper neck and skull base-carotid canals. Posterior circulation: Both vertebral arteries originate in conventional fashion off of the subclavian arteries and there is no obvious stenosis at the origin of the vertebral arteries. Both vertebral arteries exhibit normal luminal diameters within the foramen transversarium. The left vertebral artery is dominant with luminal diameter of 4.0 mm. Both vertebral arteries contribute to the formation of the basilar artery at the skull base. CTA Brain W: Anterior circulation: Both internal carotid arteries are patent in the skull base-carotid canals as well as within the cave rnous sinuses. The supraclinoid aspects of the ICAs are patent. Both A1 segments are patent as are the anterior cer ebral arteries and there is no evidence of aneurysm at the level of the anterior communicating artery . Both middle cerebral arteries are patent with no evidence of significant stenosis nor intraluminal th rombus. There also no aneurysms of these vessels. Posterior circulation: The basilar artery ascends in the midline. Distally it gives off patent bilateral superior cerebella r arteries. Above this level the basilar artery terminates as patent bilateral posterior cerebral arteries. There is no evidence of aneurysm at the tip of the basilar artery nor elsewhere in the [id number] is. CT BRAIN: There is no evidence of intracranial hemorrhage, mass effect, or shift of midline structures. There are no extra-axial fluid collections. Ventricles are not enlarged or shifted. There are no ring enh ancing lesions in the brain and no abnormal meningeal enhancement. Mild bilateral periventricular hypodensity consistent with some chronic small vessel disease. No obv ious acute infarct. IMPRESSION: 1. Patent carotid arteries in the neck. No hemodynamically significant stenosis. 2. Patent vertebral arteries. 3. Patent intracranial arteries. 4. No acute intracranial findings. No abnormal enhancing intracranial lesions and no abnormal mening eal enhancement. RADIATION DOSE DELIVERED: 2,206.39mGy.cm Total DLP DATA REPOSITORY: All CT scans at this facility are submitted to the National Radiology Data Registry (NRDR) Dose Index Registry (DIR) with the [employer] (ACR). RADIATION OPTIMIZATION: All CT scans at this facility use at least one of these dose optimization te chniques: automated exposure control; mA and/or kV adjustment per patient size (includes targeted exa ms where dose is matched to clinical indication); or iterative reconstruction.
--- NOTE | 2023-08-30 20:34 | W.ED.GENAD ---
Discharge Plan Discharge Details Chief Complaint: AMS/LOC Primary Care Provider: Tee Amato ED Provider: Jovan Rausch Home Meds and New Rx's Prescriptions: No Action ketoconazole 2 % shampoo 1 applic TP PRN PRN sennosides [senna] 8.6 mg tablet 8.6 mg PO QHS Rx Instructions: Not on current med list from PCP. ferrous gluconate 324 mg (38 mg iron) tablet 324 mg PO DAILY ketoconazole 2 % cream 1 applic TP DAILY Flovent HFA 12 GM HFA aerosol inhaler 110 mcg Inhalation BID PRN Patient Comments: Uses PRN 06/15/16 AT omeprazole 40 mg capsule,delayed release(DR/EC) 20 mg PO DAILY methadone [Methadone Intensol] 10 mg/mL concentrate 50 mg PO DAILY Rx Instructions: dose verified with ROSI on 08/06/20 gabapentin 300 mg capsule 300 mg PO QHS metoprolol succinate [Toprol XL] 25 mg tablet extended release 24 hr 25 mg PO DAILY albuterol sulfate [Proventil HFA] 6.7 GM HFA aerosol inhaler 2 puff Inhalation Q4H PRN PRN diclofenac sodium [Voltaren] 100 GM gel 1 ea Topical QID acetaminophen [Acetaminophen Extra Strength] 500 MG tablet 1,000 mg PO TID PRN PRNQty: 60 3RF Rx Instructions: Not on current med list from PCP. testosterone [AndroGel] 1 % (50 mg/5 gram) gel in packet 50 mg topical DAILY PRN Narcan 4 mg/actuation [place],Non-Aerosol See Rx Instructions .ROUTE .COMPLEX Rx Instructions: 4 mg intranasally HPI General Date/Time Provider Initiated Documentation: 08/30/23 20:25. HPI Narrative: 73 year-old male presents to ED today by POV/ambulating with difficulty with his daughter with a chief complaint of altered mental status, recent 1-day admission at [facility] for altered mental status, and discharged back to skilled nursing- where they state he was completely out of it- with onset for a couple days. Staff at house state he had a fall 3 days ago, but he also tested positive for PCP while at [facility]. Quality described as feels off, states hes having difficulty with walking, no radiation to chest pain, shortness of breath, fever, neck stiffness, syncope, slurred speech. Severity is described as moderate. Palliating factors include nothing specific. Provoking factors include nothing specific. Events leading up to the incident/Associated Symptoms: Patient states he trades his methadone sometimes, and thinks someone gave him something laced with PCP. Patient not anticoagulated. Related Data Home Medications Medication Instructions Recorded Confirmed fluticasone propionate 110 110 mcg inhalation BID PRN 03/02/14 08/06/20 mcg/actuation HFA aerosol inhaler (Flovent HFA) albuterol sulfate 90 mcg/actuation 2 puff inhalation Q4H PRN PRN 07/28/15 08/06/20 aerosol inhaler (Proventil HFA) diclofenac sodium 1 % topical gel 1 ea topical QID 07/28/15 08/06/20 (Voltaren) acetaminophen 500 mg tablet 1,000 mg (2 x 500 mg) PO TID PRN 04/12/17 08/06/20 (Acetaminophen Extra Strength) PRN #60 tabs ketoconazole 2 % shampoo 1 applic topical PRN PRN 12/19/17 08/06/20 omeprazole 40 mg capsule,delayed 20 mg PO DAILY 01/10/18 08/06/20 release ferrous gluconate 324 mg (38 mg 324 mg PO DAILY 05/16/19 08/06/20 iron) tablet ketoconazole 2 % topical cream 1 applic topical DAILY 05/16/19 08/06/20 sennosides 8.6 mg tablet (senna) 8.6 mg PO QHS 05/16/19 08/06/20 naloxone 4 mg/actuation nasal See Rx Instructions .Route .COMPLEX 08/06/20 08/06/20 spray (Narcan) testosterone 1 % (50 mg/5 gram) 50 mg topical DAILY PRN 08/06/20 08/06/20 transdermal gel packet (AndroGel) methadone 10 mg/mL oral 50 mg PO DAILY 04/14/21 concentrate (Methadone Intensol) gabapentin 300 mg capsule 300 mg PO QHS 01/19/23 metoprolol succinate 25 mg 25 mg PO DAILY 01/19/23 tablet,extended release 24 hr (Toprol XL) Previous Rx's Medication Instructions Recorded acetaminophen 500 mg tablet 1,000 mg (2 x 500 mg) PO TID PRN 04/12/17 (Acetaminophen Extra Strength) PRN #60 tabs Allergies Allergy/AdvReac Type Severity Reaction Status Date / Time ibuprofen AdvReac Intermediate Nausea Unverified 08/30/23 20:17 General Stated Complaint: AMS/LOC JEFRY: 3 Review of Systems All systems reviewed & are unremarkable except as noted in HPI and below Exam Narrative Exam Narrative: GENERAL APPEARANCE: Well-nourished, non-toxic, awake and alert, atraumatic, no acute distress. SKIN: Warm, mildly jaundiced, dry, intact, without rashes/lesions/ulcerations. HEAD: Normocephalic, atraumatic- no scalp hematoma, no periorbital ecchymosis, no Moreno's sign, normal hair distribution for gender/age. EYES: OD pupil PERRLA, OS has chronic deformity- cataract, EOMs intact without nystagmus, normal conjunctiva, no exudates on lids/lashes. ENT: Nares patent, no circumoral cyanosis, no facial swelling NECK: Supple, trachea midline, painless cervical ROM, no midline vertebral tenderness/crepitus/step-offs. LUNGS/CHEST: Lungs CTA bilaterally- no rhonchi/rales/wheezes diffusely, non-labored respirations, normal A/P diameter, symmetrical expansion, no chest wall deformity HEART (CV/PV): Regular rate and rhythm without murmur, no peripheral edema, no JVD. ABDOMEN: Soft, non-distended, no guarding, no tenderness, neg Gracia/Purchase's. MSK: Normal ROM, no swelling/deformity to bilateral UEs or LEs, moving all extremities without weakness, no cyanosis, spine midline without tenderness, normal curvature. NEURO: Mental Status AAOx4 - alert to person, place, time, events - follows commands No facial droop, no forehead involvement. - patient getting distracted during FNF, no dysmetria, does point his finger toward objects not there Motor: No focal weakness - strength 5/5 in bilateral UEs and LEs, proximal and distal, symmetric. Sensory: sensation intact to light touch globally. Gait hunched over, stiff- cog-like movements. PSYCH: euthymic, cooperative, pleasant, appropriate speech Course Vital Signs Vital signs: Vital Signs Pulse 78 08/30/23 20:13 Respiratory Rate 16 08/30/23 20:13 Blood Pressure 162/76 H 08/30/23 20:13 Pulse Oximetry 94 08/30/23 20:13 Pulse 78 08/30/23 20:13 Respiratory Rate 16 08/30/23 20:13 Respiratory Effort Normal 08/30/23 20:25 Respiratory Depth Normal 08/30/23 20:25 Respiratory Pattern Normal 08/30/23 20:25 Blood Pressure 162/76 H 08/30/23 20:13 Blood Pressure Position Sitting 08/30/23 20:13 Pulse Oximetry 94 08/30/23 20:13 Oxygen Delivery Method Room Air 08/30/23 20:13 Oxygen Flow Rate 0 08/30/23 20:13 Lab/Test Results Lab/Test Results: 08/30/23 20:26 Blood Blood Culture - Pending 08/30/23 20:26 Blood Blood Culture - Pending Medical Decision Making This dictation utilizes [id number] dictation software and may contain unedited grammatical errors. 73 year-old male presents to ED today by POV/ambulating with difficulty with his daughter with a chief complaint of altered mental status, recent 1-day admission at [facility] for altered mental status, and discharged back to skilled nursing- where they state he was completely out of it- with onset for a couple days. Staff at [facility] state he had a fall 3 days ago, but he also tested positive for PCP while at [facility]. Quality described as feels off, states hes having difficulty with walking, no radiation to chest pain, shortness of breath, fever, neck stiffness, syncope, slurred speech. Severity is described as moderate. Palliating factors include nothing specific. Provoking factors include nothing specific. Events leading up to the incident/Associated Symptoms: Patient states he trades his methadone sometimes, and thinks someone gave him something laced with PCP. Patients' medical history: History of hepatitis C, psoriasis, uveitis, diastolic dysfunction, fibromyalgia, opioid dependence, GERD, transient alteration of awareness. Family and social history: lives at group facility, methadone dependent. Pertinent exam findings / vital signs include patient is alert and oriented x 4, following commands, has nontoxic vitals, denies any sensory deficit has no motor deficits, keeps getting distracted with cerebellar testing, suspect acute residual substance intoxication. Differential / pathologies of concern include encephalopathy, CVA, ICH, TBI, acute drug ingestion. Diagnostic studies of: -CBC, BMP, LFT, lipase, magnesium, TSH, troponin I, ammonia, BNP, lactate, procalcitonin, urinalysis, UDS, blood cultures, EKG, CTA head & neck. -CBC shows anemia, chronic, no leukocytosis -BMP shows mildly elevated BUN at 23, mildly low glucose at 64 -LFTs are elevated with AST greater than ALT -Ammonia negative -Troponin negative -BNP 1700 -Lipase negative -Lactate negative, procalcitonin negative-do not suspect sepsis -TSH within normal limits -Magnesium within normal limits -UA shows hematuria -EKG shows sinus rhythm at 77 bpm, P waves followed by narrow complex QRS with normal axis, increased voltage in the lateral leads, no ST changes of ischemia, normal QT QTc, poor R wave progression -CTA Head & Neck shows no occlusive pathology, no ICH Interventions of: -IVF, D25-W 10mL IVP, . ED Course/Assessment/Plan: 73-year-old male presents to this ED from skilled nursing, was discharged from [facility] today for altered mental status where he tested positive for PCP. He does have long-term chronic substance abuse issues, often treats his methadone for other substances. He has been having trouble walking, he is following commands adequately and has overall nontoxic vitals, no sensory or motor deficits with strength 5/5 diffusely, he is partially participatory in cerebellar testing this may be due to residual intoxication of PCP versus encephalopathy. He did have a fall per skilled nursing staff 3 days ago where he did hit his head, his labs show a mildly low glucose and he was given the 25, there is no other signs for infectious encephalopathy. Patient may be encephalopathic, is having trouble ambulating, likely needs PT/OT evaluation in the morning, possibly re-evaluate with metabolism overnight. Patient signed out to Dr. Kandy Monteiro at sign-out. Findings not consistent with large vessel CVA, infectious encephalopathy, sepsis. Disposition of Altered Mental Status. Patient verbalized understanding of the plan and return to ED criteria and engaged in shared decision making. Medical Records Medical records reviewed: Yes I reviewed the patient's medical records. Imaging Data Radiologic Study: Attestation: I personally reviewed and interpreted this imaging study as follows: Imaging: CT Scan Radiologist's impression: Exam: CTA Head With Contrast, Arteriography Exam date and time: 08/30/2023 9:08 PM Age: 73 years old Clinical indication: Other: Confusion, enceph vs CVA, gait abnormal TECHNIQUE: Imaging protocol: Computed tomographic angiography of the head with contrast. Exam focused on the arteries. 3D rendering (Not supervised by radiologist): MIP and/or 3D reconstructed images were created by the technologist. Contrast material: 350; Contrast volume: 85 ml; Contrast route: INTRAVENOUS (IV); COMPARISON: CT HEAD WO 08/06/2020 8:58 AM FINDINGS: ANTERIOR CIRCULATION: Right internal carotid artery: Intracranial segment is patent with no significant stenosis. No aneurysm. Right middle cerebral artery: No occlusion or significant stenosis. No aneurysm. Right anterior cerebral artery: No occlusion or significant stenosis. No aneurysm. Left internal carotid artery: Intracranial segment is patent with no significant stenosis. No aneurysm. Left middle cerebral artery: No occlusion or significant stenosis. No aneurysm. Left anterior cerebral artery: No occlusion or significant stenosis. No aneurysm. POSTERIOR CIRCULATION: Right vertebral artery: No occlusion or significant stenosis. No aneurysm. Left vertebral artery: No occlusion or significant stenosis. No aneurysm. Basilar artery: No occlusion or significant stenosis. No aneurysm. Right posterior cerebral artery: No occlusion or significant stenosis. No aneurysm. Left posterior cerebral artery: No occlusion or significant stenosis. No aneurysm. Brain: Small vessel ischemic changes in the periventricular white matter. No evidence of an acute cortical infarct. Cerebral ventricles: No ventriculomegaly. Bones/joints: Unremarkable. No acute fracture. Soft tissues: Unremarkable. IMPRESSION: No large vessel stenosis or occlusion. PROCEDURE INFORMATION: Exam: CTA Neck With Contrast Exam date and time: 08/30/2023 9:08 PM Age: 73 years old Clinical indication: Other: Confusion, enceph vs CVA, gait abnormal TECHNIQUE: Imaging protocol: Computed tomographic angiography of the neck with contrast. Exam focused on the cervical segments of the vasculature. 3D rendering (Not supervised by radiologist): MIP and/or 3D reconstructed images were created by the technologist. Contrast material: 350; Contrast volume: 85 ml; Contrast route: INTRAVENOUS (IV); COMPARISON: CT CHEST/ABD/PEL WO 08/06/2020 9:04 AM FINDINGS: Right common carotid artery: No stenosis. No dissection or occlusion. Right internal carotid artery: No stenosis of the extracranial segment. No dissection or occlusion. Right external carotid artery: No occlusion or stenosis of the origin. Left common carotid artery: No stenosis. No dissection or occlusion. Left internal carotid artery: No stenosis of the extracranial segment. No dissection or occlusion. Left external carotid artery: No occlusion or stenosis of the origin. Right vertebral artery: No stenosis. No dissection or occlusion. Left vertebral artery: No stenosis. No dissection or occlusion. Soft tissues: Normal. No significant soft tissue swelling. Bones/joints: No acute fracture. Lungs: Mild patchy airspace disease both upper lobes. IMPRESSION: No stenosis or occlusion. Lab Data Lab results reviewed: Yes I reviewed the patient's lab results. Labs: 08/30/23 20:52 Blood Blood Culture - Pending 08/30/23 20:52 Blood Blood Culture - Pending Laboratory Tests Range/Units 08/30/23 08/30/23 20:20 20:22 WBC (4.4-10.8) 10^3/uL 9.36 RBC (4.36-5.78) 10^6/uL 3.94 L Hgb (13.5-17.5) g/dL 9.5 L Hct (40.0-50.0) % 30.9 L MCV (80-95) fL 78 L MCH (27.0-33.0) pg 24.1 L MCHC (32.0-36.0) % 30.7 L RDW (11.8-14.1) % 16.5 H Plt Count (130-400) 10^3/uL 343 MPV (8.0-11.0) fL 9.0 Immature Gran % % 0.3 Neutrophils % % 80.9 Lymphocytes % % 8.5 Monocytes % % 8.5 Eosinophils % % 1.4 Basophils % % 0.4 Nucleated RBC % (0.0-0.3) % 0.0 Absolute Neutrophils (1.2-6.7) 10^3/uL 7.56 H Absolute Lymphocytes (1.2-3.4) 10^3/uL 0.80 L Absolute Monocytes (0.1-0.8) 10^3/uL 0.80 Absolute Eosinophils (0.0-0.7) 10^3/uL 0.13 Absolute Basophils (0.0-0.2) 10^3/uL 0.04 VBG Lactate (0.6-1.4) mmol/L 0.9 Sodium (136-145) mmol/L 137 Potassium (3.5-5.1) mmol/L 3.7 Chloride (98-107) mmol/L 100 Carbon Dioxide (21.0-32.0) mmol/L 27.6 Anion Gap (3-11) mmol/L 9.4 BUN (7-18) mg/dL 23 H Creatinine (0.70-1.30) mg/dL 0.9 Est GFR (CKD-EPI 2020) (mL/min/1.73m2) 90.74 Glucose (74-106) mg/dL 64 L Calcium (8.5-10.1) mg/dL 9.3 Magnesium (1.8-2.4) mg/dL 1.9 Total Bilirubin (0.2-1.0) mg/dL 0.7 Conjugated Bilirubin (0.0-0.2) mg/dL 0.2 AST (15-37) U/L 171 H ALT (16-63) U/L 67 H Alkaline Phosphatase (46-116) U/L 126 H Ammonia (11-32) umol/L < 10 L Troponin I (< or =60) ng/L < 50 NT-Pro-B Natriuret Pep (<300) pg/mL 1776 H Total Protein (6.4-8.2) g/dL 8.4 H Albumin (3.4-5.0) g/dL 3.8 Lipase (16-77) U/L 16 Procalcitonin ng/mL < 0.1 TSH (0.36-3.74) uIU/mL 1.27 Ethyl Alcohol (<10) mg/dL < 3.0 Quality:SDOH Health Related Social Needs: No Data to Display PFSH All Active Problems (Updated 01/19/23 @ 14:44 by Randa Warren) Hearing loss (Acute) Chronic pain syndrome (Chronic) Herpes labialis (Acute) Dysphagia (Acute) Elevated liver enzymes (Acute) Supraventricular tachycardia, paroxysmal (Acute) Rhabdomyolysis (Acute) Elevated troponin (Acute) Opioid type dependence, unspecified (Acute) Transient alteration of awareness (Acute) Pneumonia (Acute) Fever (Acute) Altered mental status (Acute) Lisfranc fracture (Acute) Trigger finger, right middle finger (Acute 04/06/17) Trigger finger, left ring finger (Acute 04/06/17) Sensorineural hearing loss, bilateral (Acute 06/20/17) Chronic pain (Acute 07/12/16) Medical History (Updated 01/19/23 @ 14:44 by Randa Warren) Hx of adenomatous colonic polyps Hx of hepatitis C History of nephrolithiasis Chronic back pain Psoriasis Chronic uveitis Adenomatous colon polyp Depression Testosterone deficiency Diastolic dysfunction Bilateral hearing loss Sleep apnea Asthma Fibromyalgia Chronic hepatitis C Dupuytren contracture Seborrheic dermatitis Opioid dependence Anemia GERD (gastroesophageal reflux disease) Surgical History S/P colonoscopy with polypectomy Family History (Updated 01/19/23 @ 15:31 by Randa Warren) Father Kidney failure Heart disease heart attack Mother Lung cancer Sister Seizure Social History (Updated 01/19/23 @ 15:44 by Blair Joyce RN) Smoking/Tobacco Use Status: Former Tobacco Use Pack-years: 4 Smoking risk assessment performed?: Yes Alcohol Intake: never Drug use: Current Sobriety Substance use type: does not use Details: on methadone Housing: apartment Current gender identity: male Do you feel safe in your relationship?: Yes Additional Social history: tobacco user: quit year 1972 Sign Out Sign Out Data: Sign Out Comment: Patient recent d/c from [facility] for AMS- had an [facility]. Patient has negative Head & Neck CTA- labs fairly benign, some evidence of LFT elevation but do not suspect acute metabolic encephalopathy. Patient needs PT consult qAM for his safety issues with ambulating and fall risk, otherwise may need to metabolize any substances. Last updated by Jovan Rausch PA at 08/30/23 22:53
[2023-08-30 20:36] LABS: Lactate 0.9 mmol/L (0.6-1.4)
[2023-08-30 20:38] LABS: Abs Immature Grans 0.03 10^3/uL (0.0-0.06); Absolute Basophil Count 0.04 10^3/uL (0.0-0.2); Absolute Eosinophil Count 0.13 10^3/uL (0.0-0.7); Absolute Neutrophil Count 7.56 10^3/uL (1.2-6.7); Basophils % 0.4 %; Eosinophils % 1.4 %; HCT 30.9 % (40.0-50.0); HGB 9.5 g/dL (13.5-17.5); Immature Grans % 0.3 %; Lymphocytes % 8.5 %; MCH 24.1 pg (27.0-33.0); MCHC 30.7 % (32.0-36.0); MCV 78 fL (80-95); Monocytes % 8.5 %; Neutrophils % 80.9 %; Platelet Count 343 10^3/uL (130-400); RBC 3.94 10^6/uL (4.36-5.78); RDW 16.5 % (11.8-14.1); RDW-SD 46.6 fL; WBC 9.36 10^3/uL (4.4-10.8)
[2023-08-30 20:49] LABS: Ammonia < 10 umol/L (11-32)
[2023-08-30] MEDS: Omnipaque 350 MG/ML 100 ML BTL IJ (21:02)
[2023-08-30] MEDS: Normal Saline Flush 10 ML SYR IVP (21:03)
[2023-08-30] MEDS: Normal Saline - Diluent 50 ML VIAL IJ (21:04)
[2023-08-30 21:11] LABS: ALT 67 U/L (16-63); AST 171 U/L (15-37); Albumin 3.8 g/dL (3.4-5.0); Alkaline Phosphatase 126 U/L (46-116); Anion Gap 9.4 mmol/L (3-11); BUN 23 mg/dL (7-18); Bilirubin, Direct 0.2 mg/dL (0.0-0.2); Bilirubin, Total 0.7 mg/dL (0.2-1.0); CO2 27.6 mmol/L (21.0-32.0); CREATININE 0.9 mg/dL (0.70-1.30); Calcium 9.3 mg/dL (8.5-10.1); Chloride 100 mmol/L (98-107); Estimated GFR 90.74 (mL/min/1.73m2); Glucose 64 mg/dL (74-106); Lipase 16 U/L (16-77); Magnesium 1.9 mg/dL (1.8-2.4); NT-proBNP 1776 pg/mL (<300); Potassium 3.7 mmol/L (3.5-5.1); Sodium 137 mmol/L (136-145); TSH (W/Ref FT4) 1.27 uIU/mL (0.36-3.74); Total Protein 8.4 g/dL (6.4-8.2); Troponin I < 50 ng/L (< or =60)
[2023-08-30 21:13] LABS: Procalcitonin < 0.1 ng/mL
[2023-08-30] MEDS: Lactated Ringers 1,000 ML 1000 ML IV (21:26)
[2023-08-30] MEDS: Dextrose 25%-Water 10 ML SYR IVP (21:38)
[2023-08-30 21:55] LABS: ETHANOL BLOOD < 3.0 mg/dL (<10)
[2023-08-30 22:16] LABS: Bilirubin Small (Negative); Blood Moderate (Negative); Clarity Clear (Clear); Glucose Negative (Negative); Ketones Negative (Negative); Leukocyte Esterase Negative (Negative); Nitrite Negative (Negative); Specific Gravity >= 1.030 (1.005-1.025); Urobilinogen 0.2 mg/dL (Up to 0.2); pH 5.5 (5-8)
[2023-08-30 22:25] LABS: Bacteria Negative HPF (Negative); C & S Indicated? No; Casts 0-2 Hyaline LPF (Negative); Crystals Negative HPF (Negative); Epithelial Cells Rare HPF (Negative); Mucus Heavy (Negative); RBC 20-50 HPF (0-2); WBC 0-2 HPF (0-5)
[2023-08-30 22:32] LABS: *AMPHETAMINES SCREEN URINE Negative (Negative); *BARBITURATES SCREEN URINE Negative (Negative); *BENZODIAZEPINES SCREEN URINE Negative (Negative); Cannabinoids THC Negative (Negative); Cocaine Screen,Urine Negative (Negative); METHADONE URINE SCREEN Positive (Negative); OPIATES URINE SCREEN Negative (Negative)
[2023-08-30 22:33] LABS: Tricyclic Antidepressants Negative (Negative)
--- NOTE | 2023-08-30 22:47 | DI.VRAD_ITS ---
PROCEDURE INFORMATION: Exam: CTA Head With Contrast, Arteriography Exam date and time: 08/30/2023 9:08 PM Age: 73 years old Clinical indication: Other: Confusion, enceph vs CVA, gait abnormal TECHNIQUE: Imaging protocol: Computed tomographic angiography of the head with contrast. Exam focused on the arteries. 3D rendering (Not supervised by radiologist): MIP and/or 3D reconstructed images were created by the technologist. Contrast material: 350; Contrast volume: 85 ml; Contrast route: INTRAVENOUS (IV); COMPARISON: CT HEAD WO 08/06/2020 8:58 AM FINDINGS: ANTERIOR CIRCULATION: Right internal carotid artery: Intracranial segment is patent with no significant stenosis. No aneurysm. Right middle cerebral artery: No occlusion or significant stenosis. No aneurysm. Right anterior cerebral artery: No occlusion or significant stenosis. No aneurysm. Left internal carotid artery: Intracranial segment is patent with no significant stenosis. No aneurysm. Left middle cerebral artery: No occlusion or significant stenosis. No aneurysm. Left anterior cerebral artery: No occlusion or significant stenosis. No aneurysm. POSTERIOR CIRCULATION: Right vertebral artery: No occlusion or significant stenosis. No aneurysm. Left vertebral artery: No occlusion or significant stenosis. No aneurysm. Basilar artery: No occlusion or significant stenosis. No aneurysm. Right posterior cerebral artery: No occlusion or significant stenosis. No aneurysm. Left posterior cerebral artery: No occlusion or significant stenosis. No aneurysm. Brain: Small vessel ischemic changes in the periventricular white matter. No evidence of an acute cortical infarct. Cerebral ventricles: No ventriculomegaly. Bones/joints: Unremarkable. No acute fracture. Soft tissues: Unremarkable. IMPRESSION: No large vessel stenosis or occlusion. PROCEDURE INFORMATION: Exam: CTA Neck With Contrast Exam date and time: 08/30/2023 9:08 PM Age: 73 years old Clinical indication: Other: Confusion, enceph vs CVA, gait abnormal TECHNIQUE: Imaging protocol: Computed tomographic angiography of the neck with contrast. Exam focused on the cervical segments of the vasculature. 3D rendering (Not supervised by radiologist): MIP and/or 3D reconstructed images were created by the technologist. Contrast material: 350; Contrast volume: 85 ml; Contrast route: INTRAVENOUS (IV); COMPARISON: CT CHEST/ABD/PEL WO 08/06/2020 9:04 AM FINDINGS: Right common carotid artery: No stenosis. No dissection or occlusion. Right internal carotid artery: No stenosis of the extracranial segment. No dissection or occlusion. Right external carotid artery: No occlusion or stenosis of the origin. Left common carotid artery: No stenosis. No dissection or occlusion. Left internal carotid artery: No stenosis of the extracranial segment. No dissection or occlusion. Left external carotid artery: No occlusion or stenosis of the origin. Right vertebral artery: No stenosis. No dissection or occlusion. Left vertebral artery: No stenosis. No dissection or occlusion. Soft tissues: Normal. No significant soft tissue swelling. Bones/joints: No acute fracture. Lungs: Mild patchy airspace disease both upper lobes. IMPRESSION: No stenosis or occlusion. REFERENCES: NASCET CRITERIA. The degree of stenosis in the cervical segment of the internal carotid artery is based on NASCET criteria. Normal is no stenosis. Mild is less than 50% stenosis. Moderate is 50-69% stenosis. Severe is 70% to 99% stenosis. Total occlusion is no detectable patent lumen. Dictated and Authenticated by: Alton Jacobo MD. Ordering:KELLY Aldana MD
--- NOTE | 2023-08-30 22:55 | W.EDPROG ---
Date of service: 08/30/23 Time of Service: 22:56 Medical Decision Making This patient was signed out to me. Please see previous notes for H&P and initial eval. In brief, 73yo M presenting with altered mental status and difficulty ambulating reportedly for two days, discharged from [facility] back to his halfway yesterday after one night stay, reportedly still not at his baseline. History of recent PCP use. Laboratory and CT workup reassuring against metabolic encephalopathy or stroke (labs overall consistent with chronic disease processes/ETOH, though was borderline hypoglycemic in 60's), initially planned for discharge however remains unable to ambulate safely independently. Signed out with plan to start mIVF overnight and pending PT eval and reassessment in the morning after allowing more time to metabolize substances. Overnight appeared to sleep comfortably. Signed out to oncoming physician, plan remains as above. Quality:[facility] Health Related Social Needs: No Data to Display Sign Out Sign Out Data: Sign Out Comment: Patient recent d/c from [facility] for AMS- had an acute ingestion of PCP. [facility] where he lives is reporting a fall 3 days ago. Patient has negative Head & Neck CTA- labs fairly benign, some evidence of LFT elevation but do not suspect acute metabolic encephalopathy. Patient needs PT consult qAM for his safety issues with ambulating and fall risk, otherwise may need to metabolize any substances. Last updated by Jovan Rausch PA at 08/30/23 22:53 Discharge Plan Discharge Details Chief Complaint: AMS/LOC Primary Care Provider: Tee Amato ED Provider: Guillermina Monteiro Home Meds and New Rx's Prescriptions: No Action ketoconazole 2 % shampoo 1 applic TP PRN PRN sennosides [senna] 8.6 mg tablet 8.6 mg PO QHS Rx Instructions: Not on current med list from PCP. ferrous gluconate 324 mg (38 mg iron) tablet 324 mg PO DAILY ketoconazole 2 % cream 1 applic TP DAILY Flovent HFA 12 GM HFA aerosol inhaler 110 mcg Inhalation BID PRN Patient Comments: Uses PRN 06/15/16 AT omeprazole 40 mg capsule,delayed release(DR/EC) 20 mg PO DAILY methadone [Methadone Intensol] 10 mg/mL concentrate 50 mg PO DAILY Rx Instructions: dose verified with [facility] on 08/06/20 gabapentin 300 mg capsule 300 mg PO QHS metoprolol succinate [Toprol XL] 25 mg tablet extended release 24 hr 25 mg PO DAILY albuterol sulfate [Proventil HFA] 6.7 GM HFA aerosol inhaler 2 puff Inhalation Q4H PRN PRN diclofenac sodium [Voltaren] 100 GM gel 1 ea Topical QID acetaminophen [Acetaminophen Extra Strength] 500 MG tablet 1,000 mg PO TID PRN PRNQty: 60 3RF Rx Instructions: Not on current med list from PCP. testosterone [AndroGel] 1 % (50 mg/5 gram) gel in packet 50 mg topical DAILY PRN Narcan 4 mg/actuation [place],Non-Aerosol See Rx Instructions .ROUTE .COMPLEX Rx Instructions: 4 mg intranasally
[2023-08-30] MEDS: DEXTROSE 5%-0.45% SALINE 1,000 ML 100 ML IV (23:10)
[2023-08-31] VITALS (18 sets, daily range): BP systolic 122–148; BP diastolic 24–90; PULSE 66–81; RESP 15–22; O2SAT 88–96
[2023-08-31] MEDS: Albuterol HFA 8 GM 60 PUFF INH IH (02:00)
--- NOTE | 2023-08-31 08:38 | NUR.NOTE ---
Step long Consuelo [phone]. Can pick up man pt. Nursing Note:
--- NOTE | 2023-08-31 10:28 | PT.INIE ---
PT Notes Visit Reasons: [facility] Physical Therapy Inpatient Initial Evaluation Date: 08/31/2023 Referring Doctor: NESSA Gomes PT Orders: PT CONSULT: Safety consult for D/C. Patient having difficulty ambulating, encephalopathy versus ingestion of PCP Precautions: Standard. Activity as tolerated. Patient Profile/Admitting Diagnosis: Jin is a 73-year-old male brought to the ED by his daughter due to increasing altered mental status, reportedly had a fall 3 days ago and has had difficulty walking. PMHX: Unremarkable Social History/Home Situation: Lives in a senior care in [place] and has been modified independent with all mobility ADL performance using 4 wheeled walker. Equipment Owned/DME: [employer] Subjective: Pleasant and cooperative. Reported that he uses 4 wheeled walker at the senior care for walking. Objective: General Observation: Resting in bed. Mental Status: Alert and oriented as to person, place, time, and purpose. Able to respond appropriately to questions and follow single step commands. Pain: None reported Vital Signs: Closely monitored by nursing staff [] ROM: Right Upper Extremity: Shoulder Flexion WFL. Shoulder abduction WFL. Elbow flexion WFL. Wrist flexion WFL. Functional opening and closing of hand WFL. Left Upper Extremity: Shoulder Flexion WFL. Shoulder abduction WFL. Elbow flexion WFL. Wrist flexion WFL. Functional opening and closing of hand WFL. Right Lower Extremity: Hip flexion WFL. Hip abduction WFL. Knee flexion WFL. Ankle dorsiflexion WFL. Ankle plantarflexion WFL. Left Lower Extremity: Hip flexion WFL. Hip abduction WFL. Knee flexion WFL. Ankle dorsiflexion WFL. Ankle plantarflexion WFL. Strength: Right Upper Extremity: Grossly 4/5 Left Upper Extremity: Grossly 4/5 Right Lower Extremity: Grossly 4/5 Left Lower Extremity: Grossly 4/5 Bed Mobility/Transfers: Minimal cueing provided for use of B hands as needed for support, movement sequence, AD management, and posture to reduce fall risk and minimize pain report Rolling independent Supine to sit independent Sit to supine independent Sit to stand standby assist with FWW Stand to sit standby assist with FWW Gait: Facilitated safe and correct performance of level surface ambulation of about 600 feet using front-wheeled walker requiring moderate verbal cueing for adequate weight distribution, limb movement sequence, AD management, and posture as well as safe environmental scanning and obstacle negotiation. Patient required standby assist with no report of pain, headache, chest pain, and lightheadedness throughout activity. Balance: Static Sitting: Normal Dynamic Sitting: Normal Static Standing: Fair Dynamic Standing: Fair Special Tests: Mobility Limitations Standardized Measure [facility] AM-PAC 6 clicks Basic Mobility Inpatient Short Form: Raw Score: 23 CMS Score: 11% deficit Informed Consent/Education: Patient was instructed in purpose of PT consult and was agreeable to today's recommendations. Assessment: Patient demonstrated ability to safely perform level surface ambulation using front wheeled walker with moderate supervision from PT for safety and AD management. Patient will be supervised by senior care caregivers for all mobility ADL performance. Patient is assessed as a 59349 low complexity based on the following: History: 73-year-old male with past medical history as indicated above Examination: Demonstrable impairment in strength, balance, and mobility level with underlying impairments and functional limitations as exhibited above as well as deficit score of 11% utilizing the [facility] Mobility Inpatient Short Form Presentation: Stable Decision Makin lowcomplexity Goals: N/A. PT evaluation only. Plan of Care/Treatment Plan: N/A. PT evaluation only. DISCHARGE RECOMMENDATIONS: [] Home with no services [] [X] Home with services . Patient will benefit from home health PT services in order to progress mobility level using least restrictive assistive ambulatory device, assess home safety, identify additional equipment needs, and establish a functional maintenance program that will increase ability of patient to remain at home. [] Home with outpatient PT [] [] SNF for continued rehabilitation [] [] [facility] [] [] SNF versus LTC based on ability to participate and progress [] TREATMENT CODE/TIME: 9716 2 x 20 minutes for 1 unit space (10:28?10: 48). Thank you for the opportunity to participate in the care of this patient. Freya Anthony PT, DPT, CLT [facility] [place], [place]
--- NOTE | 2023-08-31 10:53 | ED.PROG_ITS ---
Date of service: 08/31/23 Time of Service: 11:05 Medical Decision Making Patient was signed out to me by my colleague Dr. Robin, who was signed out to by Jovan Rausch. Please refer to HPI, physical exam, assessment plan. Patient had some falls and had some weakness. Workup was relatively benign/stable. Hemoglobin stable, CT scan of the head negative, lactate normal, electrolytes benign. Transaminases are slightly elevated which is not new for the patient. Cardiac workup is normal. Thyroid function normal. Urinalysis shows no evidence of urinary tract infection. Patient was stable throughout the night, no interventions were needed. Patient was reassessed in the morning and looks notably well. Physical therapy came and evaluated the patient. They ambulated the patient throughout the department with no complications, no need for assistance. Used a walker on his own and had no challenges as such. Patient appears notably stable, he agrees with going back to his facility. I did contact his family and discussed the case with his stepdaughter, she agrees as well and will bring the patient back. Patient will be discharged. Discussed red flags for which to return. No evidence of acute life-threatening etiology at this time on reassessment. Out of an abundance of precaution a hepatitis panel was ordered for the patient. Recommend outpatient follow-up for this. I have extensively reviewed the treatment plan and discharge instructions with the patient. I have addressed all patient concerns at this time. The patient was made aware of what symptoms to monitor for that would warrant a return to the emergency department. Discussed the plan with the patient, they demonstrate verbal understanding and agreement with our assessment and plan at this time. The documentation in this chart was dictated using [employer] dictation software. Please excuse any dictation errors. Quality:[facility] Health Related Social Needs: No Data to Display Sign Out Sign Out Data: Sign Out Comment: Patient recent d/c from [facility] for AMS- had an acute ingestion of PCP. [facility] where he lives is reporting a fall 3 days ago. Patient has negative Head & Neck CTA- labs fairly benign, some evidence of LFT elevation but do not suspect acute metabolic encephalopathy. Patient needs PT consult qAM for his safety issues with ambulating and fall risk, otherwise may need to metabolize any substances. Last updated by Jovan Rausch PA at 08/30/23 22:53 Sign Out Comment: 73yo M, recent PCP use, continued altered mental status and difficulty ambulating. Labs/CT unrevealing, remained in the ED overnight to metabolize substances and to wait PT eval in the morning. Last updated by Guillermina Monteiro MD at 08/31/23 06:43 Discharge Plan Disposition Patient Disposition: Home Condition: Good Discharge Details Chief Complaint: AMS/LOC Clinical Impression: Weakness, Falls Primary Care Provider: Tee Amato ED Provider: Jovan Shelley Home Meds and New Rx's Prescriptions: No Action ketoconazole 2 % shampoo 1 applic TP PRN PRN sennosides [senna] 8.6 mg tablet 8.6 mg PO QHS Rx Instructions: Not on current med list from PCP. ferrous gluconate 324 mg (38 mg iron) tablet 324 mg PO DAILY ketoconazole 2 % cream 1 applic TP DAILY fluticasone propionate [Flovent HFA] 12 GM HFA aerosol inhaler 110 mcg Inhalation BID PRN Patient Comments: Uses PRN 06/15/16 AT methadone [Methadone Intensol] 10 mg/mL concentrate 50 mg PO DAILY Rx Instructions: dose verified with [facility] on 08/06/20 gabapentin 300 mg capsule 300 mg PO QHS albuterol sulfate [Proventil HFA] 6.7 GM HFA aerosol inhaler 2 puff Inhalation Q4H PRN PRN diclofenac sodium [Voltaren] 100 GM gel 1 ea Topical QID acetaminophen [Acetaminophen Extra Strength] 500 MG tablet 1,000 mg PO TID PRN PRNQty: 60 3RF Rx Instructions: Not on current med list from PCP. testosterone [AndroGel] 1 % (50 mg/5 gram) gel in packet 50 mg topical DAILY PRN naloxone [Narcan] 4 mg/actuation [place],Non-Aerosol See Rx Instructions .ROUTE .COMPLEX Rx Instructions: 4 mg intranasally venlafaxine 150 mg capsule,extended release 24hr 150 mg PO DAILY atorvastatin 20 mg tablet 20 mg PO DAILY Patient Comments: Take 1 tablet by mouth once a day to prevent heart disease Discharge Instructions Instructions: Fatigue ED, Preventing Falls ED Additional Instructions: At this time your workup is stable. Please continue to use your walker at home. Please drink plenty fluids to stay well-hydrated. If you notice any worsening of your symptoms, or any new symptoms such as vomiting, diarrhea, fever, chills, shortness of breath, chest pain, numbness, weakness, or fainting , please return immediately to the emergency department for reevaluation. Please follow up with your primary care provider as soon as possible for reassessment and reevaluation. As always, it was a pleasure participating in your medical care today. Referrals: Tee Amato [Primary Care Provider] -
[2023-09-01 11:35] LABS: Hepatitis A Antibody IgM Negative (Negative); Hepatitis B Core Antibody Negative (Negative); Hepatitis B surface Ag Negative (Negative); Hepatitis C Ab w Rflx HCV PCR Reactive (Negative)
[2023-09-05 11:17] LABS: HCV RNA Qualitative Undetected (Undetected)
== END 2023-08-31 15:56 | disposition home or self-care (01) ==
PROVIDERS: Physician Assistant; Emergency Provider Student in an Organized Health Care Education/Training Program; PCP Family Medicine
DX: R41.82 Altered mental status, unspecified (principal); F11.10 Opioid abuse, uncomplicated; Z87.891 Personal history of nicotine dependence
CPT/HCPCS: 00123; 36415; 70496; 70498; 80048; 80076; 80307; 82962; 83690; 84145; 86704; 86709; 86803; 87040; 87340; 87522; 93005; 97161; 99285; 80320; 81003; 81015; 82140; 83605; 83735; 83880; 84443; 84484; 85025; 93010; J3490

== ENCOUNTER 2024-06-05 19:59 | Outpatient (REF) | payer MEDICARE, MEDICAID, SELFPAY ==
[2024-06-05 20:36] LABS: Abs Immature Grans 0.02 10^3/uL (0.0-0.06); Absolute Basophil Count 0.06 10^3/uL (0.0-0.2); Absolute Eosinophil Count 0.36 10^3/uL (0.0-0.7); Absolute Lymphocyte Count 0.95 10^3/uL (1.2-3.4); Absolute Monocyte Count 0.76 10^3/uL (0.1-0.8); Absolute Neutrophil Count 4.37 10^3/uL (1.2-6.7); Basophils % 0.9 %; Eosinophils % 5.5 %; HCT 26.9 % (40.0-50.0); HGB 7.9 g/dL (13.5-17.5); Immature Grans % 0.3 %; Lymphocytes % 14.6 %; MCH 22.8 pg (27.0-33.0); MCHC 29.4 % (32.0-36.0); MCV 78 fL (80-95); MPV 9.2 fL (8.0-11.0); Monocytes % 11.7 %; Platelet Count 324 10^3/uL (130-400); RBC 3.46 10^6/uL (4.36-5.78); RDW 16.3 % (11.8-14.1); RDW-SD 46.5 fL; WBC 6.52 10^3/uL (4.4-10.8)
[2024-06-05 20:58] LABS: ALT 35 U/L (16-63); AST 44 U/L (15-37); Albumin 3.6 g/dL (3.4-5.0); Alkaline Phosphatase 118 U/L (46-116); Anion Gap 6.6 mmol/L (3-11); BUN 24 mg/dL (7-18); Bilirubin, Total 0.4 mg/dL (0.2-1.0); CO2 31.4 mmol/L (21.0-32.0); CREATININE 0.7 mg/dL (0.70-1.30); Calcium 8.9 mg/dL (8.5-10.1); Chloride 100 mmol/L (98-107); Estimated GFR 97.29 (mL/min/1.73m2); Ferritin 7 ng/mL (26-388); Glucose 67 mg/dL (74-106); Potassium 4.3 mmol/L (3.5-5.1); Sodium 138 mmol/L (136-145); TSH (W/Ref FT4) 1.65 uIU/mL (0.36-3.74); Total Protein 7.3 g/dL (6.4-8.2)
[2024-06-05 21:19] LABS: Iron 26 ug/dL (65-175); Total Iron Binding Capacity 505 ug/dL (250-450); Transferrin Sat 5 % (20-55)
[2024-06-06 15:50] LABS: Vitamin B12 747 pg/mL (193-986)
[2024-06-06 23:02] LABS: Folate 14.2 ng/mL (See Note)
== END 2024-06-05 20:00 | disposition home or self-care (01) ==
LOC: NCHCN 19:59
PROVIDERS: PCP Family Medicine; Visit Provider Student in an Organized Health Care Education/Training Program
DX: D50.9 Iron deficiency anemia, unspecified (principal); I10 Essential (primary) hypertension
CPT/HCPCS: 80053; 82607; 82728; 82746; 83540; 83550; 84443; 85025

== ENCOUNTER → 2024-06-19 15:08 | Outpatient (BNVA) | payer MEDICARE, MEDICAID, SELFPAY | PROVIDERS: PCP Family Medicine; Referring Provider Family Medicine; Visit Provider Student in an Organized Health Care Education/Training Program | DX: Z86.2 Personal history of diseases of the blood and blood-forming organs and certain disorders involving the immune mechanism (principal) | CPT/HCPCS: 99203 ==